=== PATIENT | female | born 1960 | race African-American/Black ===

== ENCOUNTER 2018-05-31 05:31 | Day surgery (SDC) | payer OTHER ==
[2018-05-30 16:56] VITALS: BMI 30.3
[2018-05-31] MEDS ORDERED: SEVOFLURANE 250 ML BTL ONE (08:02)
[2018-05-31] MEDS ORDERED: MIDAZOLAM HCL 2 MG/2 ML SINGLE DOSE VIAL ONE (09:02)
--- NOTE | 2018-05-31 09:28 | HP ---
DATE OF ADMISSION: 05/31/2018 She is a 57-year-old female with history of overactive bladder, also complains of stress urinary incontinence. Patient wakes up every 1 hour to pass urine. She denies dysuria or hematuria. She does have history of high blood pressure, COPD, and dyslipidemia. Patient has undergone a hysterectomy as well as transvaginal taping. She is a G3, P3, 1 . Presently, she is on Symbicort, gabapentin, Norvasc, Zocor, Prozac, and Ambien. PHYSICAL EXAMINATION: General: A well-developed, middle-aged female in no apparent distress. Abdomen: Soft. Back: No CVA tenderness was noted. Pelvic: Vaginal orifice revealed a grade 1 cystocele. There was atrophic vaginitis. Extremities: Showed full range of motion with no cyanosis, clubbing, or edema. IMPRESSION AT PRESENT: Overactive bladder, minimal help with anticholinergics. PLAN: Botox bladder injection. Genie [id number]
[2018-05-31] MEDS ORDERED: ACETAMINOPHEN 325 MG TABLET (FP) PO PRN (09:33)
[2018-05-31] MEDS ORDERED: DEXAMETHASONE SOD PHOSPHATE 4 MG/1 ML VIAL ONE (09:41)
--- NOTE | 2018-05-31 09:43 | OP ---
Operative Note - Note: Operative Date: 05/31/18 Pre-Operative Diagnosis: oab Operation: cysto iou, botox injection into bladder Findings: grade 1 trabeculation and mild hyperemia Post-Operative Diagnosis: Same as Pre-op Surgeon: Jj Bhandari Anesthesia: General Specimens Removed: urine Estimated Blood Loss (mls): 0 Drains, Volume Out (mls): 0 Blood Volume Replaced (mls): 0 Fluid Volume Replaced (mls): 0 Operative Report Dictated: Yes
[2018-05-31] MEDS ORDERED: ceFAZolin SODIUM 1 GM VIAL IVPB ONE (09:46)
[2018-05-31] MEDS ORDERED: PROPOFOL 20 ML ONE (09:46)
[2018-05-31] MEDS ORDERED: LIDOCAINE HCL/PF 2% SDV 5ML VIAL ONE (09:46)
[2018-05-31] MEDS ORDERED: ceFAZolin SODIUM 1 GM VIAL ONE (09:46)
[2018-05-31] MEDS ORDERED: BOTULINUM TOXIN A 100 UNITS VIAL NR ONE (10:00)
[2018-05-31] MEDS ORDERED: oxyCODONE HCL 5 MG TABLET PO PRN (10:19)
[2018-05-31] MEDS ORDERED: ONDANSETRON 4 MG/2 ML VIAL IVPUSH PRN (10:19)
[2018-05-31] MEDS ORDERED: LACTATED RINGERS SOLUTION 1,000 ML IV SCH (10:30)
[2018-05-31 13:40] VITALS: BP 141/79; PULSE 66; TEMP 97.8
--- NOTE | 2018-06-30 10:54 | OP ---
DATE OF OPERATION: 05/31/2018 PREOPERATIVE DIAGNOSIS: Overactive bladder. OPERATIVE PROCEDURE: Cystourethroscopy and bladder instillation of Botox solution. ANESTHESIA: General. Under the above-stated anesthesia, patient was prepped and draped in the usual sterile manner. She was placed in the dorsal lithotomy position. A 30-degree continuous-flow scope introduced under direct vision revealed a normal bladder mucosa. No lesions were noted. No calculi were seen. Ureteral orifices were within normal limits. Next, 200 units of Botox were mixed with 20 mL of normal saline. Therefore, 1 mL of the solution was injected 1 cm above the ureteral orifices, commencing from the right side of the bladder and ending at the left side of the bladder. Four rows of 5 injections were performed. No active bleeding was noted. The bladder was emptied. The scope was removed. The patient tolerated the procedure well. She returned to the recovery room in good condition. Genie [id number]
== END 2018-05-31 13:30 | disposition home or self-care (01) ==
LOC: JASU-SURG 05:31
PROVIDERS: ATTEND Urology
PROC: 3E0K8GC Introduction of Other Therapeutic Substance into Genitourinary Tract, Via Natural or Artificial Opening Endoscopic (ICD-10-PCS; principal; 2018-05-31 09:00)
DX: N32.81 Overactive bladder (principal)
CPT/HCPCS: 94760

== ENCOUNTER 2018-08-12 09:41 | Day surgery (SDC) | payer OTHER ==
[2018-08-11 10:47] VITALS: BMI 30.7
[~2018-08-12 09:41] MED LIST: LIDOCAINE 1% P/F 10 MG/ML VIAL INF ONE
[2018-08-12] MEDS ORDERED: LIDOCAINE HCL 1%, 10 MG/ML (20ML VIAL) ONE (13:20)
--- NOTE | 2018-08-12 13:34 | OP ---
Operative Note - Note: Operative Date: 08/05/18 Pre-Operative Diagnosis: oab Operation: bladder interstim and lead implantation Post-Operative Diagnosis: Same as Pre-op Surgeon: Jj Bhandari Anesthesia: Local, Fractional Specimens Removed: none Estimated Blood Loss (mls): 20 Drains & Tubes with Location: 0cc Drains, Volume Out (mls): 0 Blood Volume Replaced (mls): 0 Fluid Volume Replaced (mls): 0 Operative Report Dictated: Yes
[2018-08-12] MEDS ORDERED: MIDAZOLAM HCL 2 MG/2 ML SINGLE DOSE VIAL ONE ×2 (13:42)
[2018-08-12] MEDS ORDERED: ceFAZolin SODIUM 1 GM VIAL ONE (13:50)
[2018-08-12] MEDS ORDERED: ceFAZolin SODIUM 1 GM VIAL IVPB ONE (13:50)
[2018-08-12] MEDS ORDERED: ONDANSETRON 4 MG/2 ML VIAL ONE (13:53)
[2018-08-12] MEDS ORDERED: DEXAMETHASONE SOD PHOSPHATE 4 MG/1 ML VIAL ONE (13:53)
[2018-08-12] MEDS ORDERED: LIDOCAINE 1% P/F 10 MG/ML VIAL INF ONE ×2 (13:59)
[2018-08-12] MEDS ORDERED: PROPOFOL 20 ML ONE (14:06)
[2018-08-12] MEDS ORDERED: oxyCODONE HCL 5 MG TABLET PO PRN (15:08)
[2018-08-12] MEDS ORDERED: ONDANSETRON 4 MG/2 ML VIAL IVPUSH PRN (15:08)
[2018-08-12] MEDS ORDERED: LACTATED RINGERS SOLUTION 1,000 ML IV SCH (15:15)
[2018-08-12 17:03] VITALS: BP 139/86; PULSE 64; TEMP 98
--- NOTE | 2018-08-13 07:18 | OP ---
DATE OF OPERATION: 08/12/2018 PREOPERATIVE DIAGNOSIS: Overactive bladder. OPERATIVE PROCEDURE: Implantation of neuromodulation lead and battery. ANESTHESIA: Local as well as fractional. DESCRIPTION OF PROCEDURE: Under above stated anesthesia, the patient was prepped and draped in the usual sterile manner. She is placed in the prone position. After cannulating sacral root to and finding the bellow maneuver, the sacral root was entered via the lead. The lead was then subcutaneously tunneled to the right supraglutteal area. A pocket was made by performing a 6-cm vertical incision. This was carried down through skin and subcutaneous tissue using both blunt and sharp dissection. The lead was connected to the neuromodulation battery and placed in the pocket. The pocket was irrigated with antibiotic, and the pocket was closed with the 1st layer of 3-0 Vicryl suture LigaSure and the skin with halle. Pressure dressing was applied. Patient tolerated the procedure well. She returned to the recovery room in good condition. Genie [id number]
== END 2018-08-12 17:55 | disposition home or self-care (01) ==
LOC: JASU-SURG 09:41
PROVIDERS: ATTEND Urology
PROC: 01HY0MZ Insertion of Neurostimulator Lead into Peripheral Nerve, Open Approach (ICD-10-PCS; 2018-08-12)
PROC: 4B01XVZ Measurement of Peripheral Nervous Stimulator, External Approach (ICD-10-PCS; 2018-08-12)
PROC: 0JH70DZ Insertion of Multiple Array Stimulator Generator into Back Subcutaneous Tissue and Fascia, Open Approach (ICD-10-PCS; principal; 2018-08-12 12:00)
DX: N32.81 Overactive bladder (principal); R39.15 Urgency of urination; R35.0 Frequency of micturition
CPT/HCPCS: 64581; 64590; 95972; C1778; L8679; 76000-TC-FY; 94760

== ENCOUNTER 2022-02-27 14:06 | Inpatient (IN) | payer BC, OTHER ==
[2022-02-27] MEDS ORDERED: SODIUM CHLORIDE 2,395 ML IV ONE (15:22)
[2022-02-27] MEDS ORDERED: ACETAMINOPHEN 1000 MG/100 ML BAG IVPB ONE (15:23)
[2022-02-27] MEDS ORDERED: CEFEPIME HCL/D5W 2 GM/50 ML BAG IVPB ONE (15:25)
[2022-02-27] MEDS ORDERED: VANCOMYCIN 1 GM in D5W (PRE-DOCKED) 1,000 MG/250 ML IVPB ONE (15:25)
[2022-02-27] MEDS ORDERED: ACETAMINOPHEN INJECTION 100 ML IVPB ONE (15:50)
[2022-02-27] MEDS ORDERED: CEFEPIME 2 GM/100 ML BAG IVPB ONE (16:10)
[2022-02-27 16:30] LABS: HEMOGLOBIN 12.5 GM/dL (10.7-15.3); MCH 25.3 pg (25.7-33.7); MEAN CELL VOLUME 79.1 fl (80-96); MEAN PLT VOLUME 9.7 fl (7.5-11.1); PLATELET COUNT 265 10^3/uL (134-434); RBC 4.93 M/mm3 (3.60-5.2); RDW 17.8 % (11.6-15.6); WHITE BLOOD COUNT 28.5 K/mm3 (4.0-10.0)
[2022-02-27 16:33] LABS: VENOUS BASE EXCESS -4.5 mmol/L (-2-2); VENOUS O2 SATURATION 65.8 % (70-80); VENOUS PCO2 38.6 mmHg (38-52); VENOUS PH 7.347 (7.310-7.410)
[2022-02-27 16:41] LABS: INR 1.42 (0.83-1.09); PROTHROMBIN TIME (PATIENT) 16.4 SEC (9.7-13.0)
[2022-02-27 16:43] LABS: ACTIVATED PTT 36.1 SECONDS (25.2-36.5)
[2022-02-27] MEDS ORDERED: VANCOMYCIN/WATER FOR INJ (PEG) 1,000 MG/200 ML BAG IVPB ONE (16:43)
[2022-02-27 17:00] LABS: LACTIC ACID 3.4 mmol/L (0.4-2.0)
[2022-02-27 17:04] LABS: CHLORIDE 105 mmol/L (98-107); SODIUM 136 mmol/L (136-145)
[2022-02-27 17:06] LABS: CALCIUM 8.6 mg/dL (8.5-10.1)
[2022-02-27 17:07] LABS: ALBUMIN 2.8 g/dl (3.4-5.0); ANION GAP 11 MMOL/L (8-16); BLOOD UREA NITROGEN 27.2 mg/dL (7-18); CO2 20 mmol/L (21-32); GLUCOSE,RANDOM 140 mg/dL (74-106)
[2022-02-27 17:09] LABS: CREATININE 2.3 mg/dL (0.55-1.3)
[2022-02-27 17:10] LABS: SGOT/AST 16 U/L (15-37); SGPT/ALT 19 U/L (13-61)
[2022-02-27 17:11] LABS: BILIRUBIN,TOTAL 0.3 mg/dL (0.2-1); TOT PROT 6.8 g/dl (6.4-8.2)
[2022-02-27 17:13] LABS: ALK PHOS 90 U/L (45-117)
[2022-02-27 17:14] LABS: N-TERMINAL BNP 668.2 pg/ml (5-125)
[2022-02-27 17:17] LABS: ANISOCYTOSIS 2+; OVALOCYTE 1+; PLATELET ESTIMATE ADEQUATE; TEAR DROP CELLS 1+
[2022-02-27 19:25] LABS: LACTIC ACID 2.3 mmol/L (0.4-2.0)
[2022-02-27] MEDS ORDERED: SODIUM CHLORIDE 0.9% 500 ML INFUS.BAG IV ONE (19:29)
[2022-02-27] MEDS ORDERED: DEXTROSE 5%-0.45% SALINE 1,000 ML IV SCH (22:00)
[2022-02-27 22:33] LABS: URINE APPEARANCE CLOUDY; URINE BILIRUBIN NEGATIVE (NEGATIVE); URINE COLOR DK YELLOW; URINE GLUCOSE (UA) NEGATIVE (NEGATIVE); URINE KETONE TRACE (NEGATIVE)
[2022-02-27 22:34] LABS: PH,URINE 5.5 (5.0-8.0); URINE LEUK ESTERASE 3+ (NEGATIVE); URINE NITRITE NEGATIVE (NEGATIVE); URINE PROTEIN 30 (NEGATIVE)
[2022-02-28] MEDS: HEPARIN NA (PORCINE) 5,000 UNITS/ML 1ML VIAL SQ SCH ×2 (02:39→10:13)
[2022-02-28] MEDS ORDERED: HEPARIN NA (PORCINE) 5,000 UNITS/ML 1ML VIAL ONE ×2 (02:42→09:55)
[2022-02-28] MEDS: ACETAMINOPHEN 1000 MG/100 ML BAG IVPB PRN ×3 (03:08→15:10)
[2022-02-28 06:26] LABS: HEMOGLOBIN 11.7 GM/dL (10.7-15.3); MCH 24.7 pg (25.7-33.7); MCHC 30.9 g/dl (32.0-36.0); MEAN CELL VOLUME 79.9 fl (80-96); MEAN PLT VOLUME 10.6 fl (7.5-11.1); PLATELET COUNT 252 10^3/uL (134-434); RBC 4.75 M/mm3 (3.60-5.2); RDW 17.8 % (11.6-15.6)
[2022-02-28 06:42] LABS: WHITE BLOOD COUNT 31.7 K/mm3 (4.0-10.0)
[2022-02-28 06:49] LABS: CALCIUM 8.1 mg/dL (8.5-10.1)
[2022-02-28 06:50] LABS: ALBUMIN 2.2 g/dl (3.4-5.0); BLOOD UREA NITROGEN 31.4 mg/dL (7-18)
[2022-02-28 06:54] LABS: BILIRUBIN,TOTAL 0.3 mg/dL (0.2-1); TOT PROT 5.6 g/dl (6.4-8.2)
[2022-02-28 07:09] LABS: LACTIC ACID 2.7 mmol/L (0.4-2.0)
[2022-02-28] MEDS ORDERED: ACETAMINOPHEN INJECTION 100 ML IVPB ONE ×2 (08:47→15:34)
[2022-02-28 09:49] LABS: ANISOCYTOSIS 2+; MACROCYTOSIS 0; OVALOCYTE 2+; TEAR DROP CELLS 1+
[2022-02-28] MEDS ORDERED: CEFEPIME 1 GM/100 ML BAG IVPB ONE (09:56)
[2022-02-28] MEDS ORDERED: CEFEPIME 1 GM in DEXTROSE 5%-WATER 100 ML IVPB ONE (10:00)
[2022-02-28] MEDS ORDERED: methylPREDNISolone NA SUCC 1000 MG/8 ML VIAL IVPB ONE (11:19)
[2022-02-28] MEDS ORDERED: LACTATED RINGERS SOLUTION 1,000 ML/1,000 ML INFUS.BAG IV SCH (11:30)
[2022-02-28] MEDS ORDERED: methylPREDNISolone NA SUCC 1000 MG/8 ML VIAL ONE (11:43)
[2022-02-28] MEDS ORDERED: traMADol HCL 50 MG TABLET ONE (17:56)
[2022-02-28] MEDS: traMADol HCL 50 MG TABLET PO PRN (18:00)
[2022-03-01] MEDS: HEPARIN NA (PORCINE) 5,000 UNITS/ML 1ML VIAL SQ SCH ×3 (03:18→21:17)
[2022-03-01] MEDS: CEFEPIME 1 GM in DEXTROSE 5%-WATER 100 ML IVPB SCH ×3 (03:18→21:17)
[2022-03-01] MEDS ORDERED: CEFEPIME 1 GM/100 ML BAG IVPB ONE ×2 (03:18→08:46)
[2022-03-01] MEDS: traMADol HCL 50 MG TABLET PO PRN ×2 (03:31→21:17)
[2022-03-01] MEDS ORDERED: traMADol HCL 50 MG TABLET ONE (03:37)
[2022-03-01 08:37] LABS: HEMATOCRIT 32.8 % (32.4-45.2); HEMOGLOBIN 10.3 GM/dL (10.7-15.3); MCH 24.9 pg (25.7-33.7); MCHC 31.5 g/dl (32.0-36.0); MEAN CELL VOLUME 78.9 fl (80-96); MEAN PLT VOLUME 9.7 fl (7.5-11.1); PLATELET COUNT 251 10^3/uL (134-434); RBC 4.15 M/mm3 (3.60-5.2); RDW 17.7 % (11.6-15.6)
[2022-03-01] MEDS ORDERED: HEPARIN NA (PORCINE) 5,000 UNITS/ML 1ML VIAL ONE (08:46)
[2022-03-01 08:55] LABS: WHITE BLOOD COUNT 35.5 K/mm3 (4.0-10.0)
[2022-03-01 09:02] LABS: CALCIUM 8.2 mg/dL (8.5-10.1)
[2022-03-01 09:03] LABS: ALBUMIN 2.1 g/dl (3.4-5.0); BLOOD UREA NITROGEN 29.4 mg/dL (7-18); MAGNESIUM 1.8 mg/dL (1.8-2.4)
[2022-03-01 09:06] LABS: CREATININE 0.9 mg/dL (0.55-1.3); PHOSPHOROUS 2.5 mg/dL (2.5-4.9)
[2022-03-01 09:08] LABS: BILIRUBIN,TOTAL 0.3 mg/dL (0.2-1); TOT PROT 5.3 g/dl (6.4-8.2)
[2022-03-01] MEDS ORDERED: methylPREDNISolone NA SUCC 1000 MG/8 ML VIAL IVPB ONE (10:30)
[2022-03-01] MEDS: LACTATED RINGERS SOLUTION 1,000 ML/1,000 ML INFUS.BAG IV SCH (10:32)
[2022-03-01] MEDS ORDERED: POLYETHYLENE GLYCOL (HEALTHYLAX) 3350 17 GM PACKET ONE (10:38)
[2022-03-01] MEDS: POLYETHYLENE GLYCOL (HEALTHYLAX) 3350 17 GM PACKET PO SCH (10:43)
[2022-03-01] MEDS ORDERED: SODIUM CHLORIDE IVPB ONE (11:00)
[2022-03-01] MEDS ORDERED: METHYLPREDNISOLONE NA SUCC IVPB ONE (11:00)
[2022-03-01] MEDS ORDERED: VANCOMYCIN 1 GM/200 ML PREMIX BAG IVPB ONE (11:43)
[2022-03-01] MEDS ORDERED: VANCOMYCIN/WATER FOR INJ (PEG) 1,000 MG/200 ML BAG IVPB ONE (12:01)
[2022-03-01 19:32] VITALS: BMI 28.7
[2022-03-02 06:27] LABS: HEMATOCRIT 31.5 % (32.4-45.2); HEMOGLOBIN 9.9 GM/dL (10.7-15.3); MCH 24.6 pg (25.7-33.7); MCHC 31.3 g/dl (32.0-36.0); MEAN CELL VOLUME 78.4 fl (80-96); MEAN PLT VOLUME 10.1 fl (7.5-11.1); PLATELET COUNT 247 10^3/uL (134-434); RBC 4.02 M/mm3 (3.60-5.2); RDW 17.6 % (11.6-15.6)
[2022-03-02 06:31] LABS: WHITE BLOOD COUNT 37.2 K/mm3 (4.0-10.0)
[2022-03-02] MEDS: traMADol HCL 50 MG TABLET PO PRN (06:47)
[2022-03-02 06:52] LABS: CALCIUM 8.2 mg/dL (8.5-10.1)
[2022-03-02 06:53] LABS: BLOOD UREA NITROGEN 24.5 mg/dL (7-18); MAGNESIUM 1.8 mg/dL (1.8-2.4)
[2022-03-02 06:56] LABS: CREATININE 0.7 mg/dL (0.55-1.3); PHOSPHOROUS 2.9 mg/dL (2.5-4.9)
[2022-03-02 06:57] LABS: BILIRUBIN,TOTAL 0.5 mg/dL (0.2-1); TOT PROT 5.6 g/dl (6.4-8.2)
[2022-03-02] MEDS ORDERED: ARIPiprazole 20 MG TABLET PO SCH ×2 (10:00)
[2022-03-02] MEDS: CARVEDILOL 12.5 MG TABLET (FP) PO SCH ×2 (10:11→21:44)
[2022-03-02] MEDS: CEFEPIME 1 GM in DEXTROSE 5%-WATER 100 ML IVPB SCH ×2 (10:11→21:44)
[2022-03-02] MEDS: HEPARIN NA (PORCINE) 5,000 UNITS/ML 1ML VIAL SQ SCH ×2 (10:13→21:44)
[2022-03-02] MEDS: methylPREDNISolone NA SUCC 40 MG/1 ML VIAL IVPUSH SCH ×3 (10:13→21:44)
[2022-03-02] MEDS: POLYETHYLENE GLYCOL (HEALTHYLAX) 3350 17 GM PACKET PO SCH (10:16)
[2022-03-02 10:23] LABS: ANISOCYTOSIS 1+; MACROCYTOSIS 0
[2022-03-02] MEDS: BUDESONIDE/FORMETEROL FUMARATE 160/4.5 mcg INHALER IH SCH ×2 (11:53→21:48)
[2022-03-02 14:57] LABS: EPI CELLS 10 /uL (0-25.1); HYALINE CASTS 1 /uL (0-3.1); PH,URINE 6.5 (5.0-8.0); URINE APPEARANCE CLEAR; URINE BACTERIA 15 /uL (0-1359); URINE BILIRUBIN NEGATIVE (NEGATIVE); URINE COLOR YELLOW; URINE GLUCOSE (UA) NEGATIVE (NEGATIVE); URINE KETONE 1+ (NEGATIVE); URINE LEUK ESTERASE TRACE (NEGATIVE); URINE NITRITE NEGATIVE (NEGATIVE); URINE PROTEIN TRACE (NEGATIVE); URINE RBC 3 /uL (0-23.9); URINE WBC 13 /uL (0-25.8)
[2022-03-02] MEDS: LACTATED RINGERS SOLUTION 1,000 ML/1,000 ML INFUS.BAG IV SCH (16:40)
[2022-03-03] MEDS: methylPREDNISolone NA SUCC 40 MG/1 ML VIAL IVPUSH SCH ×4 (03:00→21:15)
[2022-03-03 07:10] LABS: HEMATOCRIT 31.6 % (32.4-45.2); HEMOGLOBIN 10.1 GM/dL (10.7-15.3); MCH 25.8 pg (25.7-33.7); MEAN CELL VOLUME 80.6 fl (80-96); MEAN PLT VOLUME 9.8 fl (7.5-11.1); PLATELET COUNT 191 10^3/uL (134-434); RBC 3.92 M/mm3 (3.60-5.2); RDW 17.5 % (11.6-15.6)
[2022-03-03 07:27] LABS: BLOOD UREA NITROGEN 20.9 mg/dL (7-18); CALCIUM 8.3 mg/dL (8.5-10.1)
[2022-03-03 07:28] LABS: ALBUMIN 2.3 g/dl (3.4-5.0)
[2022-03-03 07:31] LABS: BILIRUBIN,TOTAL 0.6 mg/dL (0.2-1); CREATININE 0.6 mg/dL (0.55-1.3)
[2022-03-03 07:32] LABS: TOT PROT 6.1 g/dl (6.4-8.2)
[2022-03-03 09:37] LABS: ANISOCYTOSIS 0; MACROCYTOSIS 0; OVALOCYTE 1+
[2022-03-03] MEDS: CEFEPIME 1 GM in DEXTROSE 5%-WATER 100 ML IVPB SCH ×2 (09:58→21:15)
[2022-03-03] MEDS: CARVEDILOL 12.5 MG TABLET (FP) PO SCH ×2 (09:58→21:15)
[2022-03-03] MEDS: HEPARIN NA (PORCINE) 5,000 UNITS/ML 1ML VIAL SQ SCH ×2 (09:58→21:15)
[2022-03-03] MEDS: BUDESONIDE/FORMETEROL FUMARATE 160/4.5 mcg INHALER IH SCH ×2 (10:17→21:15)
[2022-03-03] MEDS: LACTATED RINGERS SOLUTION 1,000 ML/1,000 ML INFUS.BAG IV SCH (10:25)
[2022-03-03] MEDS ORDERED: PHYTONADIONE 10 MG/1 ML AMP IVPB ONE (13:45)
[2022-03-03] MEDS: POLYETHYLENE GLYCOL (HEALTHYLAX) 3350 17 GM PACKET PO SCH (15:15)
[2022-03-03] MEDS: amLODIPine BESYLATE 10 MG TABLET (FP) PO SCH (18:32)
[2022-03-04] MEDS: methylPREDNISolone NA SUCC 40 MG/1 ML VIAL IVPUSH SCH ×3 (02:56→21:04)
[2022-03-04 07:35] LABS: BASO % 1.8 % (0-2.0); EOS % 1.6 % (0-4.5); HEMATOCRIT 30.9 % (32.4-45.2); HEMOGLOBIN 9.7 GM/dL (10.7-15.3); MCH 24.9 pg (25.7-33.7); MCHC 31.5 g/dl (32.0-36.0); MEAN CELL VOLUME 79.1 fl (80-96); MEAN PLT VOLUME 10.4 fl (7.5-11.1); MONO % 3.6 % (3.8-10.2); PLATELET COUNT 232 10^3/uL (134-434); RBC 3.91 M/mm3 (3.60-5.2); RDW 17.2 % (11.6-15.6); WHITE BLOOD COUNT 26.1 K/mm3 (4.0-10.0)
[2022-03-04 07:42] LABS: INR 1.17 (0.83-1.09); PROTHROMBIN TIME (PATIENT) 13.5 SEC (9.7-13.0)
[2022-03-04 08:04] LABS: ALBUMIN 2.4 g/dl (3.4-5.0); BLOOD UREA NITROGEN 19.5 mg/dL (7-18); CALCIUM 8.5 mg/dL (8.5-10.1)
[2022-03-04 08:06] LABS: ALBUMIN 2.5 g/dl (3.4-5.0); IRON SERUM 87 ug/dL (50-175)
[2022-03-04 08:07] LABS: CREATININE 0.6 mg/dL (0.55-1.3)
[2022-03-04 08:08] LABS: TOTAL IRON BINDING CAPACITY 242 ug/dL (250-450)
[2022-03-04 08:09] LABS: BILIRUBIN,TOTAL 0.6 mg/dL (0.2-1); TOT PROT 6.4 g/dl (6.4-8.2)
[2022-03-04 08:10] LABS: BILIRUBIN,DIRECT 0.3 mg/dL (0.0-0.2)
[2022-03-04 08:11] LABS: BILIRUBIN,TOTAL 0.7 mg/dL (0.2-1); TOT PROT 6.3 g/dl (6.4-8.2)
[2022-03-04 09:37] LABS: ANISOCYTOSIS 1+; MACROCYTOSIS 0; OVALOCYTE 1+
[2022-03-04] MEDS: amLODIPine BESYLATE 10 MG TABLET (FP) PO SCH (09:54)
[2022-03-04] MEDS: HEPARIN NA (PORCINE) 5,000 UNITS/ML 1ML VIAL SQ SCH ×2 (09:54→21:03)
[2022-03-04] MEDS: CEFEPIME 1 GM in DEXTROSE 5%-WATER 100 ML IVPB SCH ×2 (09:54→21:03)
[2022-03-04] MEDS: POLYETHYLENE GLYCOL (HEALTHYLAX) 3350 17 GM PACKET PO SCH (09:54)
[2022-03-04] MEDS: CARVEDILOL 12.5 MG TABLET (FP) PO SCH ×2 (09:54→21:03)
[2022-03-04] MEDS: PANTOPRAZOLE 40 MG TABLET PO SCH (09:54)
[2022-03-04] MEDS: LACTATED RINGERS SOLUTION 1,000 ML/1,000 ML INFUS.BAG IV SCH (09:54)
[2022-03-04] MEDS: BUDESONIDE/FORMETEROL FUMARATE 160/4.5 mcg INHALER IH SCH ×2 (09:54→21:09)
[2022-03-05 07:11] LABS: HEMATOCRIT 30.3 % (32.4-45.2); HEMOGLOBIN 9.7 GM/dL (10.7-15.3); MCH 25.4 pg (25.7-33.7); MEAN CELL VOLUME 79.2 fl (80-96); MEAN PLT VOLUME 10.5 fl (7.5-11.1); PLATELET COUNT 251 10^3/uL (134-434); RBC 3.82 M/mm3 (3.60-5.2); RDW 17.2 % (11.6-15.6)
[2022-03-05 07:19] LABS: INR 1.21 (0.83-1.09)
[2022-03-05 07:30] LABS: CALCIUM 8.4 mg/dL (8.5-10.1)
[2022-03-05 07:31] LABS: ALBUMIN 2.6 g/dl (3.4-5.0); BLOOD UREA NITROGEN 17.2 mg/dL (7-18)
[2022-03-05 07:33] LABS: BILIRUBIN,DIRECT 0.3 mg/dL (0.0-0.2)
[2022-03-05 07:34] LABS: CREATININE 0.5 mg/dL (0.55-1.3)
[2022-03-05 07:35] LABS: BILIRUBIN,TOTAL 0.6 mg/dL (0.2-1)
[2022-03-05 07:36] LABS: TOT PROT 6.6 g/dl (6.4-8.2)
[2022-03-05] MEDS: CARVEDILOL 12.5 MG TABLET (FP) PO SCH ×2 (09:19→21:02)
[2022-03-05] MEDS: HEPARIN NA (PORCINE) 5,000 UNITS/ML 1ML VIAL SQ SCH ×2 (09:19→21:02)
[2022-03-05] MEDS: POLYETHYLENE GLYCOL (HEALTHYLAX) 3350 17 GM PACKET PO SCH (09:19)
[2022-03-05] MEDS: amLODIPine BESYLATE 10 MG TABLET (FP) PO SCH (09:20)
[2022-03-05] MEDS: CEFEPIME 1 GM in DEXTROSE 5%-WATER 100 ML IVPB SCH ×2 (09:20→21:02)
[2022-03-05] MEDS: PANTOPRAZOLE 40 MG TABLET PO SCH (09:20)
[2022-03-05] MEDS: FLUoxetine HCL 20 MG CAPSULE PO SCH (09:21)
[2022-03-05] MEDS: methylPREDNISolone NA SUCC 40 MG/1 ML VIAL IVPUSH SCH ×2 (09:21→21:01)
[2022-03-05] MEDS: BUDESONIDE/FORMETEROL FUMARATE 160/4.5 mcg INHALER IH SCH ×2 (10:00→21:02)
[2022-03-05 10:21] LABS: ANISOCYTOSIS 0; MACROCYTOSIS 0; OVALOCYTE 1+
[2022-03-05] MEDS ORDERED: LISINOPRIL 20 MG TABLET PO ONE (11:00)
[2022-03-06 07:03] LABS: HEMATOCRIT 29.5 % (32.4-45.2); HEMOGLOBIN 9.6 GM/dL (10.7-15.3); MCH 25.6 pg (25.7-33.7); MCHC 32.4 g/dl (32.0-36.0); MEAN CELL VOLUME 78.9 fl (80-96); MEAN PLT VOLUME 10.6 fl (7.5-11.1); PLATELET COUNT 255 10^3/uL (134-434); RBC 3.74 M/mm3 (3.60-5.2); RDW 17.1 % (11.6-15.6); WHITE BLOOD COUNT 17.4 K/mm3 (4.0-10.0)
[2022-03-06 07:20] LABS: INR 1.22 (0.83-1.09); PROTHROMBIN TIME (PATIENT) 14.1 SEC (9.7-13.0)
[2022-03-06 07:21] LABS: CALCIUM 8.4 mg/dL (8.5-10.1)
[2022-03-06 07:22] LABS: ALBUMIN 2.6 g/dl (3.4-5.0); BLOOD UREA NITROGEN 18.8 mg/dL (7-18)
[2022-03-06 07:25] LABS: CREATININE 0.5 mg/dL (0.55-1.3)
[2022-03-06 07:26] LABS: ALBUMIN 2.6 g/dl (3.4-5.0); BILIRUBIN,TOTAL 0.6 mg/dL (0.2-1); TOT PROT 6.6 g/dl (6.4-8.2)
[2022-03-06 07:29] LABS: BILIRUBIN,DIRECT 0.2 mg/dL (0.0-0.2)
[2022-03-06 07:31] LABS: BILIRUBIN,TOTAL 0.8 mg/dL (0.2-1); TOT PROT 6.6 g/dl (6.4-8.2)
[2022-03-06] MEDS: CEFEPIME 1 GM in DEXTROSE 5%-WATER 100 ML IVPB SCH (09:20)
[2022-03-06] MEDS: CARVEDILOL 12.5 MG TABLET (FP) PO SCH ×2 (09:21→21:12)
[2022-03-06] MEDS: LISINOPRIL 20 MG TABLET PO SCH (09:21)
[2022-03-06] MEDS: amLODIPine BESYLATE 10 MG TABLET (FP) PO SCH (09:21)
[2022-03-06] MEDS: FLUoxetine HCL 20 MG CAPSULE PO SCH (09:21)
[2022-03-06] MEDS: POLYETHYLENE GLYCOL (HEALTHYLAX) 3350 17 GM PACKET PO SCH (09:21)
[2022-03-06] MEDS: HEPARIN NA (PORCINE) 5,000 UNITS/ML 1ML VIAL SQ SCH (09:21)
[2022-03-06] MEDS: PANTOPRAZOLE 40 MG TABLET PO SCH (09:21)
[2022-03-06] MEDS: methylPREDNISolone NA SUCC 40 MG/1 ML VIAL IVPUSH SCH ×2 (09:21→21:12)
[2022-03-06] MEDS: BUDESONIDE/FORMETEROL FUMARATE 160/4.5 mcg INHALER IH SCH ×2 (09:22→21:12)
[2022-03-06 09:34] LABS: ANISOCYTOSIS 2+; MACROCYTOSIS 0; OVALOCYTE 2+
[2022-03-06] MEDS: traMADol HCL 50 MG TABLET PO PRN (20:06)
[2022-03-07 07:50] LABS: HEMATOCRIT 29.8 % (32.4-45.2); HEMOGLOBIN 9.7 GM/dL (10.7-15.3); MCH 25.8 pg (25.7-33.7); MCHC 32.4 g/dl (32.0-36.0); MEAN CELL VOLUME 79.5 fl (80-96); MEAN PLT VOLUME 9.9 fl (7.5-11.1); PLATELET COUNT 231 10^3/uL (134-434); RBC 3.75 M/mm3 (3.60-5.2); RDW 17.3 % (11.6-15.6); WHITE BLOOD COUNT 14.5 K/mm3 (4.0-10.0)
[2022-03-07 07:54] LABS: ALBUMIN 2.7 g/dl (3.4-5.0); BLOOD UREA NITROGEN 20.1 mg/dL (7-18); CALCIUM 8.4 mg/dL (8.5-10.1)
[2022-03-07 07:57] LABS: CREATININE 0.6 mg/dL (0.55-1.3)
[2022-03-07 08:00] LABS: BILIRUBIN,TOTAL 0.7 mg/dL (0.2-1); TOT PROT 6.7 g/dl (6.4-8.2)
[2022-03-07] MEDS: PANTOPRAZOLE 40 MG TABLET PO SCH (09:22)
[2022-03-07] MEDS: POLYETHYLENE GLYCOL (HEALTHYLAX) 3350 17 GM PACKET PO SCH (09:23)
[2022-03-07] MEDS: CARVEDILOL 12.5 MG TABLET (FP) PO SCH ×2 (09:23→21:01)
[2022-03-07] MEDS: LISINOPRIL 20 MG TABLET PO SCH (09:23)
[2022-03-07] MEDS: FLUoxetine HCL 20 MG CAPSULE PO SCH (09:23)
[2022-03-07] MEDS: amLODIPine BESYLATE 10 MG TABLET (FP) PO SCH (09:23)
[2022-03-07] MEDS: methylPREDNISolone NA SUCC 40 MG/1 ML VIAL IVPUSH SCH ×2 (09:24→21:01)
[2022-03-07] MEDS: BUDESONIDE/FORMETEROL FUMARATE 160/4.5 mcg INHALER IH SCH ×2 (09:29→21:01)
[2022-03-07 12:02] LABS: ANISOCYTOSIS 1+; MACROCYTOSIS 0
[2022-03-07] MEDS ORDERED: diphenhydrAMINE HCL 25 MG CAPSULE (FP) PO ONE (19:21)
[2022-03-07] MEDS: traMADol HCL 50 MG TABLET PO PRN (21:00)
[2022-03-08 06:59] LABS: HEMATOCRIT 29.6 % (32.4-45.2); HEMOGLOBIN 9.7 GM/dL (10.7-15.3); MCH 26.2 pg (25.7-33.7); MCHC 32.9 g/dl (32.0-36.0); MEAN CELL VOLUME 79.6 fl (80-96); MEAN PLT VOLUME 9.6 fl (7.5-11.1); PLATELET COUNT 246 10^3/uL (134-434); RBC 3.72 M/mm3 (3.60-5.2); RDW 17.3 % (11.6-15.6); WHITE BLOOD COUNT 13.4 K/mm3 (4.0-10.0)
[2022-03-08 07:20] LABS: ALBUMIN 2.8 g/dl (3.4-5.0); BLOOD UREA NITROGEN 18.1 mg/dL (7-18); CALCIUM 8.6 mg/dL (8.5-10.1)
[2022-03-08 07:23] LABS: CREATININE 0.6 mg/dL (0.55-1.3)
[2022-03-08 07:25] LABS: BILIRUBIN,TOTAL 0.5 mg/dL (0.2-1); TOT PROT 6.5 g/dl (6.4-8.2)
[2022-03-08] MEDS ORDERED: diphenhydrAMINE HCL 25 MG CAPSULE (FP) PO ONE (09:22)
[2022-03-08] MEDS ORDERED: HYDROCORTISONE 0.5% TOPICAL OINTMENT TUBE TP PRN (09:33)
[2022-03-08] MEDS: methylPREDNISolone NA SUCC 40 MG/1 ML VIAL IVPUSH SCH ×2 (09:59→21:21)
[2022-03-08] MEDS: LISINOPRIL 20 MG TABLET PO SCH (10:01)
[2022-03-08] MEDS: PANTOPRAZOLE 40 MG TABLET PO SCH (10:02)
[2022-03-08] MEDS: amLODIPine BESYLATE 10 MG TABLET (FP) PO SCH (10:03)
[2022-03-08] MEDS: FLUoxetine HCL 20 MG CAPSULE PO SCH (10:03)
[2022-03-08] MEDS: CARVEDILOL 12.5 MG TABLET (FP) PO SCH ×2 (10:04→21:21)
[2022-03-08] MEDS: POLYETHYLENE GLYCOL (HEALTHYLAX) 3350 17 GM PACKET PO SCH (10:04)
[2022-03-08] MEDS: BUDESONIDE/FORMETEROL FUMARATE 160/4.5 mcg INHALER IH SCH ×2 (10:04→21:21)
[2022-03-08 10:16] LABS: ANISOCYTOSIS 0; HELMET CELLS 0; HOWELL-JOLLY BODIES 0; MACROCYTOSIS 0; OVALOCYTE 0; ROULEAU 0; SICKELED CELLS 0; TARGET CELLS 0; TEAR DROP CELLS 0; TOXIC GRANULATION 0
[2022-03-08] MEDS: MINERAL OIL/PET HY-PHL TOPICAL OINTMENT 454 GM JAR TP SCH ×2 (13:00→21:21)
[2022-03-08] MEDS: traMADol HCL 50 MG TABLET PO PRN ×2 (14:16→22:35)
[2022-03-08] MEDS: diphenhydrAMINE HCL 25 MG CAPSULE (FP) PO PRN (18:07)
[2022-03-08] MEDS: HYDROCORTISONE 0.5% TOPICAL CREAM 30 GM TUBE TP PRN (22:40)
[2022-03-09] MEDS: diphenhydrAMINE HCL 25 MG CAPSULE (FP) PO PRN ×2 (04:55→20:04)
[2022-03-09] MEDS: PANTOPRAZOLE 40 MG TABLET PO SCH (09:58)
[2022-03-09] MEDS: CARVEDILOL 12.5 MG TABLET (FP) PO SCH ×2 (09:58→21:08)
[2022-03-09] MEDS: LISINOPRIL 20 MG TABLET PO SCH (09:59)
[2022-03-09] MEDS: amLODIPine BESYLATE 10 MG TABLET (FP) PO SCH (10:00)
[2022-03-09] MEDS: predniSONE 10 MG TABLET (UD) PO SCH ×2 (10:00→21:08)
[2022-03-09] MEDS: FLUoxetine HCL 20 MG CAPSULE PO SCH (10:00)
[2022-03-09] MEDS: POLYETHYLENE GLYCOL (HEALTHYLAX) 3350 17 GM PACKET PO SCH (10:00)
[2022-03-09] MEDS: MINERAL OIL/PET HY-PHL TOPICAL OINTMENT 454 GM JAR TP SCH ×2 (10:00→21:08)
[2022-03-09] MEDS: BUDESONIDE/FORMETEROL FUMARATE 160/4.5 mcg INHALER IH SCH ×2 (10:00→21:09)
[2022-03-09] MEDS: traMADol HCL 50 MG TABLET PO PRN (16:59)
[2022-03-09] MEDS: HYDROCORTISONE 0.5% TOPICAL CREAM 30 GM TUBE TP PRN ×2 (17:00→21:09)
[2022-03-10] MEDS: traMADol HCL 50 MG TABLET PO PRN (04:29)
[2022-03-10] MEDS: diphenhydrAMINE HCL 25 MG CAPSULE (FP) PO PRN (04:29)
[2022-03-10 10:13] VITALS: BP 145/76; PULSE 60; RESP 16; TEMP 98.5
[2022-03-10] MEDS: amLODIPine BESYLATE 10 MG TABLET (FP) PO SCH (11:01)
[2022-03-10] MEDS: CARVEDILOL 12.5 MG TABLET (FP) PO SCH (11:01)
[2022-03-10] MEDS: PANTOPRAZOLE 40 MG TABLET PO SCH (11:01)
[2022-03-10] MEDS: MINERAL OIL/PET HY-PHL TOPICAL OINTMENT 454 GM JAR TP SCH (11:01)
[2022-03-10] MEDS: POLYETHYLENE GLYCOL (HEALTHYLAX) 3350 17 GM PACKET PO SCH (11:01)
[2022-03-10] MEDS: FLUoxetine HCL 20 MG CAPSULE PO SCH (11:02)
[2022-03-10] MEDS: LISINOPRIL 20 MG TABLET PO SCH (11:02)
[2022-03-10] MEDS: predniSONE 10 MG TABLET (UD) PO SCH (11:02)
[2022-03-10] MEDS: BUDESONIDE/FORMETEROL FUMARATE 160/4.5 mcg INHALER IH SCH (11:02)
== END 2022-03-10 11:53 | disposition home or self-care (01) | DRG 871 ==
LOC: JER 14:06 → JERBED 17:06 → J2W 03-01 19:22
PROVIDERS: ADMIT Internal Medicine; ATTEND Family Medicine
DX: A41.89 Other specified sepsis (principal); J18.9 Pneumonia, unspecified organism; N17.9 Acute kidney failure, unspecified; E87.2 Acidosis; E78.5 Hyperlipidemia, unspecified; I10 Essential (primary) hypertension; N28.1 Cyst of kidney, acquired; J45.909 Unspecified asthma, uncomplicated; R21 Rash and other nonspecific skin eruption; R79.89 Other specified abnormal findings of blood chemistry; R74.01 Elevation of levels of liver transaminase levels; M46.46 Discitis, unspecified, lumbar region; D72.829 Elevated white blood cell count, unspecified; D72.12 Drug rash with eosinophilia and systemic symptoms syndrome; T50.995A Adverse effect of other drugs, medicaments and biological substances, initial encounter
CPT/HCPCS: 0241U-QW; 36415; 71045-TC-FY; 71046-TC-FY; 74176-TC; 76705-TC; 76775-TC; 78226-TC; 80053; 80076; 81003; 82550; 82553; 82570; 82728; 82803; 82977; 83516; 83540; 83550; 83605; 83690; 83735; 83880; 84100; 84156; 84300; 84484; 85025; 85610; 85651; 85730; 86038; 86140; 86593; 86694; 86695; 86696; 86708; 86757; 86780; 86803; 86850; 86900; 86901; 87040; 87086; 87340; 87517; 87902; 88300-TC; 93005; 93010; 97116-GP; 97162-GP; 99291; A9537; G0480; J1644

== ENCOUNTER 2022-03-25 15:55 | Inpatient (IN) | payer BC, OTHER ==
[2022-03-25] MEDS ORDERED: ACETAMINOPHEN 1000 MG/100 ML BAG IVPB ONE (16:24)
[2022-03-25] MEDS ORDERED: ACETAMINOPHEN INJECTION 100 ML IVPB ONE (16:57)
[2022-03-25 17:11] LABS: BASO % 0.5 % (0-2.0); EOS % 10.4 % (0-4.5); HEMATOCRIT 33.2 % (32.4-45.2); HEMOGLOBIN 10.6 GM/dL (10.7-15.3); LYMPH % 19.9 % (8-40); MCH 26.6 pg (25.7-33.7); MEAN CELL VOLUME 83.1 fl (80-96); MEAN PLT VOLUME 8.4 fl (7.5-11.1); MONO % 5.1 % (3.8-10.2); NEUT % 64.1 % (42.8-82.8); PLATELET COUNT 212 10^3/uL (134-434); RDW 20.4 % (11.6-15.6); WHITE BLOOD COUNT 15.2 K/mm3 (4.0-10.0)
[2022-03-25 17:14] LABS: VENOUS BASE EXCESS 1.7 mmol/L (-2-2); VENOUS O2 SATURATION 52.8 % (70-80); VENOUS PCO2 46.5 mmHg (38-52); VENOUS PH 7.385 (7.310-7.410)
[2022-03-25 17:20] LABS: INR 0.94 (0.83-1.09); PROTHROMBIN TIME (PATIENT) 10.8 SEC (9.7-13.0)
[2022-03-25 17:23] LABS: ACTIVATED PTT 23.1 SECONDS (25.2-36.5)
[2022-03-25] MEDS ORDERED: VANCOMYCIN 1 GM in D5W (PRE-DOCKED) 1,000 MG/250 ML IVPB ONE (17:27)
[2022-03-25] MEDS ORDERED: PIPERACILLIN/TAZOB 3.375 GM 3.375 GM in DEXTROSE 5%-WATER - 50 ML IVPB ONE (17:27)
[2022-03-25] MEDS ORDERED: VANCOMYCIN/WATER FOR INJ (PEG) 1,000 MG/200 ML BAG IVPB ONE (17:32)
[2022-03-25] MEDS ORDERED: PIPERACILLIN/TAZOB 3.375 GM 3.375 GM/50 ML BAG IVPB ONE (17:32)
[2022-03-25 17:36] LABS: CHLORIDE 97 mmol/L (98-107); SODIUM 135 mmol/L (136-145)
[2022-03-25 17:38] LABS: CALCIUM 8.4 mg/dL (8.5-10.1)
[2022-03-25 17:39] LABS: ALBUMIN 2.8 g/dl (3.4-5.0); ANION GAP 12 MMOL/L (8-16); BLOOD UREA NITROGEN 18.8 mg/dL (7-18); CO2 27 mmol/L (21-32); GLUCOSE,RANDOM 94 mg/dL (74-106)
[2022-03-25 17:42] LABS: CREATININE 0.9 mg/dL (0.55-1.3); SGOT/AST 30 U/L (15-37); SGPT/ALT 33 U/L (13-61)
[2022-03-25 17:43] LABS: ANISOCYTOSIS 2+; MACROCYTOSIS 0; OVALOCYTE 1+
[2022-03-25 17:44] LABS: BILIRUBIN,TOTAL 0.4 mg/dL (0.2-1)
[2022-03-25 17:45] LABS: ALK PHOS 89 U/L (45-117)
[2022-03-25 22:30] LABS: PH,URINE 7.5 (5.0-8.0); URINE APPEARANCE CLEAR; URINE BILIRUBIN NEGATIVE (NEGATIVE); URINE COLOR YELLOW; URINE GLUCOSE (UA) NEGATIVE (NEGATIVE); URINE KETONE NEGATIVE (NEGATIVE); URINE LEUK ESTERASE NEGATIVE (NEGATIVE); URINE NITRITE NEGATIVE (NEGATIVE); URINE PROTEIN NEGATIVE (NEGATIVE); URINE UROBILINOGEN 0.2 mg/dL (0.2-1.0)
[2022-03-26] MEDS ORDERED: HYDROCORTISONE 0.5% TOPICAL CREAM 30 GM TUBE TP PRN (01:01)
[2022-03-26] MEDS ORDERED: ALBUTEROL SO4 0.083% IH SOL 2.5 MG/3 ML VIAL.NEB. NEB PRN (01:01)
[2022-03-26] MEDS ORDERED: ACETAMINOPHEN 1000 MG/100 ML BAG IVPB PRN (03:11)
[2022-03-26] MEDS ORDERED: LIDOCAINE 5% TOPICAL PATCH TP ONE (03:17)
[2022-03-26] MEDS: BUDESONIDE/FORMETEROL FUMARATE 160/4.5 mcg INHALER IH SCH ×3 (03:30→22:27)
[2022-03-26] MEDS: GABAPENTIN 300 MG CAPSULE PO SCH ×3 (03:30→22:27)
[2022-03-26] MEDS: PIPERACILLIN/TAZOB 3.375 GM 3.375 GM in DEXTROSE 5%-WATER - 50 ML IVPB SCH ×4 (03:31→21:26)
[2022-03-26] MEDS ORDERED: MAG HYDROX/AL HYDROX/SIMETH 30 ML UNIT-DOSE CUP PO PRN (03:51)
[2022-03-26] MEDS ORDERED: ARTIFICIAL TEARS (POLYVINYL ALCOHOL) OPTH DROPS OU PRN (06:01)
[2022-03-26 06:27] VITALS: BMI 26.3
[2022-03-26] MEDS: VANCOMYCIN/WATER FOR INJ (PEG) 1,000 MG/200 ML BAG IVPB SCH ×2 (06:45→19:05)
[2022-03-26 08:20] LABS: HEMATOCRIT 31.4 % (32.4-45.2); HEMOGLOBIN 10.4 GM/dL (10.7-15.3); MCH 27.3 pg (25.7-33.7); MEAN CELL VOLUME 82.6 fl (80-96); MEAN PLT VOLUME 8.8 fl (7.5-11.1); PLATELET COUNT 204 10^3/uL (134-434); RDW 20.3 % (11.6-15.6); WHITE BLOOD COUNT 10.9 K/mm3 (4.0-10.0)
[2022-03-26 08:36] LABS: BLOOD UREA NITROGEN 13.8 mg/dL (7-18); CALCIUM 8.5 mg/dL (8.5-10.1); MAGNESIUM 2.4 mg/dL (1.8-2.4)
[2022-03-26 08:39] LABS: CREATININE 0.8 mg/dL (0.55-1.3); PHOSPHOROUS 4.4 mg/dL (2.5-4.9)
[2022-03-26 09:33] LABS: ANISOCYTOSIS 1+; MACROCYTOSIS 1+
[2022-03-26] MEDS ORDERED: LIDOCAINE PATCH REMOVAL MC ONE (10:00)
[2022-03-26] MEDS ORDERED: VANCOMYCIN 1 GM in D5W (PRE-DOCKED) 1,000 MG/250 ML IVPB SCH (10:00)
[2022-03-26] MEDS ORDERED: LIDOCAINE 5% TOPICAL PATCH TP SCH (10:00)
[2022-03-26] MEDS: PANTOPRAZOLE 40 MG TABLET PO SCH (10:14)
[2022-03-26] MEDS: ENOXAPARIN NA (PORCINE) 40 MG/0.4 ML DISP.SYRIN SQ SCH (10:18)
[2022-03-26] MEDS: FLUTICASONE PROP 0.05% 16 GM NASAL SPRAY NS SCH (10:40)
[2022-03-26] MEDS: ACETAMINOPHEN 325 MG TABLET (FP) PO PRN (10:50)
[2022-03-26] MEDS: FLUoxetine HCL 20 MG CAPSULE PO SCH (10:53)
[2022-03-26] MEDS: CARVEDILOL 12.5 MG TABLET (FP) PO SCH ×2 (11:14→22:26)
[2022-03-26] MEDS: MINERAL OIL/PET HY-PHL TOPICAL OINTMENT 454 GM JAR TP SCH ×2 (11:17→22:26)
[2022-03-26] MEDS: LIDOCAINE 5% TOPICAL PATCH TP SCH (12:39)
[2022-03-26] MEDS ORDERED: KETOROLAC TROMETHAMINE 30 MG/1 ML VIAL IVPUSH PRN (16:07)
[2022-03-26] MEDS: KETOROLAC TROMETHAMINE 30 MG/1 ML VIAL IVPB PRN ×2 (16:54→22:16)
[2022-03-26] MEDS: LIDOCAINE PATCH REMOVAL MC SCH (22:27)
[2022-03-27] MEDS: PIPERACILLIN/TAZOB 3.375 GM 3.375 GM in DEXTROSE 5%-WATER - 50 ML IVPB SCH ×5 (01:48→18:08)
[2022-03-27] MEDS ORDERED: PIPERACILLIN/TAZOB 3.375 GM 3.375 GM in DEXTROSE 5%-WATER - 50 ML IVPB SCH (02:00)
[2022-03-27] MEDS: VANCOMYCIN 1 GM in D5W (PRE-DOCKED) 1,000 MG/250 ML IVPB SCH (07:55)
[2022-03-27] MEDS: CARVEDILOL 12.5 MG TABLET (FP) PO SCH ×2 (09:39→21:33)
[2022-03-27] MEDS: FLUTICASONE PROP 0.05% 16 GM NASAL SPRAY NS SCH (09:40)
[2022-03-27] MEDS: ENOXAPARIN NA (PORCINE) 40 MG/0.4 ML DISP.SYRIN SQ SCH (09:40)
[2022-03-27] MEDS: LIDOCAINE 5% TOPICAL PATCH TP SCH (09:40)
[2022-03-27] MEDS: BUDESONIDE/FORMETEROL FUMARATE 160/4.5 mcg INHALER IH SCH ×2 (09:41→21:35)
[2022-03-27] MEDS: PANTOPRAZOLE 40 MG TABLET PO SCH (09:41)
[2022-03-27] MEDS: MINERAL OIL/PET HY-PHL TOPICAL OINTMENT 454 GM JAR TP SCH ×2 (09:41→21:35)
[2022-03-27] MEDS: FLUoxetine HCL 20 MG CAPSULE PO SCH (09:41)
[2022-03-27] MEDS: GABAPENTIN 300 MG CAPSULE PO SCH ×2 (09:41→21:33)
[2022-03-27] MEDS: KETOROLAC TROMETHAMINE 30 MG/1 ML VIAL IVPB PRN (09:54)
[2022-03-27] MEDS ORDERED: KETOROLAC TROMETHAMINE 30 MG/1 ML VIAL IVPUSH PRN (18:13)
[2022-03-27] MEDS: LIDOCAINE PATCH REMOVAL MC SCH (21:34)
[2022-03-28] MEDS: FLUoxetine HCL 20 MG CAPSULE PO SCH (09:54)
[2022-03-28] MEDS: CARVEDILOL 12.5 MG TABLET (FP) PO SCH ×2 (09:54→21:54)
[2022-03-28] MEDS: MINERAL OIL/PET HY-PHL TOPICAL OINTMENT 454 GM JAR TP SCH ×2 (09:54→21:55)
[2022-03-28] MEDS: GABAPENTIN 300 MG CAPSULE PO SCH ×2 (09:54→21:54)
[2022-03-28] MEDS: PANTOPRAZOLE 40 MG TABLET PO SCH (09:54)
[2022-03-28] MEDS: LIDOCAINE 5% TOPICAL PATCH TP SCH (09:55)
[2022-03-28] MEDS: BUDESONIDE/FORMETEROL FUMARATE 160/4.5 mcg INHALER IH SCH ×2 (09:55→21:53)
[2022-03-28] MEDS: FLUTICASONE PROP 0.05% 16 GM NASAL SPRAY NS SCH (10:01)
[2022-03-28] MEDS: oxyCODONE HCL 5 MG TABLET PO PRN ×3 (10:03→22:26)
[2022-03-28] MEDS: LIDOCAINE PATCH REMOVAL MC SCH (21:54)
[2022-03-29] MEDS: oxyCODONE HCL 5 MG TABLET PO PRN ×2 (09:14→21:55)
[2022-03-29] MEDS: PANTOPRAZOLE 40 MG TABLET PO SCH (09:15)
[2022-03-29] MEDS: GABAPENTIN 300 MG CAPSULE PO SCH ×2 (09:15→21:54)
[2022-03-29] MEDS: CARVEDILOL 12.5 MG TABLET (FP) PO SCH ×2 (09:15→21:54)
[2022-03-29] MEDS: FLUoxetine HCL 20 MG CAPSULE PO SCH (09:15)
[2022-03-29] MEDS: BUDESONIDE/FORMETEROL FUMARATE 160/4.5 mcg INHALER IH SCH ×2 (09:16→21:54)
[2022-03-29] MEDS: FLUTICASONE PROP 0.05% 16 GM NASAL SPRAY NS SCH (09:16)
[2022-03-29] MEDS: LIDOCAINE 5% TOPICAL PATCH TP SCH (09:19)
[2022-03-29] MEDS: MINERAL OIL/PET HY-PHL TOPICAL OINTMENT 454 GM JAR TP SCH ×2 (09:20→21:54)
[2022-03-29] MEDS: KETOROLAC TROMETHAMINE 30 MG/1 ML VIAL IVPUSH PRN (14:00)
[2022-03-29] MEDS: DOCUSATE SODIUM 100 MG CAPSULE (FP) PO SCH ×2 (14:05→21:54)
[2022-03-29] MEDS: LIDOCAINE PATCH REMOVAL MC SCH (21:54)
[2022-03-30] MEDS: DOCUSATE SODIUM 100 MG CAPSULE (FP) PO SCH ×3 (06:19→21:30)
[2022-03-30] MEDS: LIDOCAINE 5% TOPICAL PATCH TP SCH (11:42)
[2022-03-30] MEDS: oxyCODONE HCL 5 MG TABLET PO PRN ×2 (11:42→19:25)
[2022-03-30] MEDS: GABAPENTIN 300 MG CAPSULE PO SCH ×2 (11:43→21:30)
[2022-03-30] MEDS: CARVEDILOL 12.5 MG TABLET (FP) PO SCH ×2 (11:44→21:30)
[2022-03-30] MEDS: FLUTICASONE PROP 0.05% 16 GM NASAL SPRAY NS SCH (11:44)
[2022-03-30] MEDS: FLUoxetine HCL 20 MG CAPSULE PO SCH (11:44)
[2022-03-30] MEDS: PANTOPRAZOLE 40 MG TABLET PO SCH (11:44)
[2022-03-30] MEDS: BUDESONIDE/FORMETEROL FUMARATE 160/4.5 mcg INHALER IH SCH ×2 (11:49→21:31)
[2022-03-30] MEDS: MINERAL OIL/PET HY-PHL TOPICAL OINTMENT 454 GM JAR TP SCH ×2 (11:50→21:30)
[2022-03-30] MEDS: PIPERACILLIN/TAZOB 3.375 GM 3.375 GM in DEXTROSE 5%-WATER - 50 ML IVPB SCH ×2 (12:17→18:51)
[2022-03-30] MEDS: VANCOMYCIN/WATER FOR INJ (PEG) 1,000 MG/200 ML BAG IVPB SCH (12:23)
[2022-03-30] MEDS: ACETAMINOPHEN 325 MG TABLET (FP) PO PRN (14:27)
[2022-03-30] MEDS: KETOROLAC TROMETHAMINE 30 MG/1 ML VIAL IVPUSH PRN (21:29)
[2022-03-30] MEDS: LIDOCAINE PATCH REMOVAL MC SCH (21:30)
[2022-03-31] MEDS: VANCOMYCIN/WATER FOR INJ (PEG) 1,000 MG/200 ML BAG IVPB SCH ×2 (00:04→15:04)
[2022-03-31] MEDS: PIPERACILLIN/TAZOB 3.375 GM 3.375 GM in DEXTROSE 5%-WATER - 50 ML IVPB SCH ×3 (02:04→17:59)
[2022-03-31] MEDS: oxyCODONE HCL 5 MG TABLET PO PRN ×3 (02:05→18:34)
[2022-03-31] MEDS: DOCUSATE SODIUM 100 MG CAPSULE (FP) PO SCH ×3 (05:53→21:28)
[2022-03-31] MEDS: KETOROLAC TROMETHAMINE 30 MG/1 ML VIAL IVPUSH PRN ×3 (05:54→23:48)
[2022-03-31 09:49] LABS: HEMOGLOBIN 9.5 GM/dL (10.7-15.3); MCH 26.6 pg (25.7-33.7); MCHC 31.7 g/dl (32.0-36.0); MEAN CELL VOLUME 83.8 fl (80-96); MEAN PLT VOLUME 8.5 fl (7.5-11.1); PLATELET COUNT 308 10^3/uL (134-434); RBC 3.57 M/mm3 (3.60-5.2); RDW 20.5 % (11.6-15.6); WHITE BLOOD COUNT 7.6 K/mm3 (4.0-10.0)
[2022-03-31 10:16] LABS: ALBUMIN 2.7 g/dl (3.4-5.0); BLOOD UREA NITROGEN 8.2 mg/dL (7-18); CALCIUM 8.7 mg/dL (8.5-10.1)
[2022-03-31 10:19] LABS: CREATININE 0.7 mg/dL (0.55-1.3)
[2022-03-31 10:21] LABS: BILIRUBIN,TOTAL 0.3 mg/dL (0.2-1); TOT PROT 5.7 g/dl (6.4-8.2)
[2022-03-31] MEDS: GABAPENTIN 300 MG CAPSULE PO SCH ×2 (10:36→21:28)
[2022-03-31] MEDS: FLUoxetine HCL 20 MG CAPSULE PO SCH (10:37)
[2022-03-31] MEDS: CARVEDILOL 12.5 MG TABLET (FP) PO SCH ×2 (10:38→21:28)
[2022-03-31] MEDS: PANTOPRAZOLE 40 MG TABLET PO SCH (10:38)
[2022-03-31] MEDS: BUDESONIDE/FORMETEROL FUMARATE 160/4.5 mcg INHALER IH SCH ×2 (10:40→21:28)
[2022-03-31] MEDS: MINERAL OIL/PET HY-PHL TOPICAL OINTMENT 454 GM JAR TP SCH ×2 (10:40→21:28)
[2022-03-31] MEDS: FLUTICASONE PROP 0.05% 16 GM NASAL SPRAY NS SCH (10:41)
[2022-03-31] MEDS: LIDOCAINE 5% TOPICAL PATCH TP SCH (10:41)
[2022-03-31] MEDS ORDERED: PIPERACILLIN/TAZOBACTAM 3.375 GM VIAL IVPB ONE (14:55)
[2022-03-31] MEDS: LIDOCAINE PATCH REMOVAL MC SCH (21:28)
[2022-04-01] MEDS: PIPERACILLIN/TAZOB 3.375 GM 3.375 GM in DEXTROSE 5%-WATER - 50 ML IVPB SCH ×3 (01:50→17:59)
[2022-04-01] MEDS: DOCUSATE SODIUM 100 MG CAPSULE (FP) PO SCH ×3 (06:10→21:54)
[2022-04-01] MEDS: oxyCODONE HCL 5 MG TABLET PO PRN ×3 (08:25→21:57)
[2022-04-01] MEDS: FLUoxetine HCL 20 MG CAPSULE PO SCH (09:34)
[2022-04-01] MEDS: CARVEDILOL 12.5 MG TABLET (FP) PO SCH ×2 (09:34→21:54)
[2022-04-01] MEDS: GABAPENTIN 300 MG CAPSULE PO SCH ×2 (09:34→21:54)
[2022-04-01] MEDS: PANTOPRAZOLE 40 MG TABLET PO SCH (09:35)
[2022-04-01] MEDS: MINERAL OIL/PET HY-PHL TOPICAL OINTMENT 454 GM JAR TP SCH ×2 (09:35→22:10)
[2022-04-01] MEDS: FLUTICASONE PROP 0.05% 16 GM NASAL SPRAY NS SCH (09:36)
[2022-04-01] MEDS: BUDESONIDE/FORMETEROL FUMARATE 160/4.5 mcg INHALER IH SCH ×2 (09:36→22:09)
[2022-04-01] MEDS: LIDOCAINE 5% TOPICAL PATCH TP SCH (10:19)
[2022-04-01] MEDS: VANCOMYCIN/WATER FOR INJ (PEG) 1,000 MG/200 ML BAG IVPB SCH ×2 (12:41)
[2022-04-01] MEDS: ACETAMINOPHEN 325 MG TABLET (FP) PO PRN (14:20)
[2022-04-01] MEDS: KETOROLAC TROMETHAMINE 30 MG/1 ML VIAL IVPUSH PRN (18:39)
[2022-04-01] MEDS: LIDOCAINE PATCH REMOVAL MC SCH (22:10)
[2022-04-02] MEDS: VANCOMYCIN/WATER FOR INJ (PEG) 1,000 MG/200 ML BAG IVPB SCH ×2 (00:45→11:48)
[2022-04-02] MEDS: PIPERACILLIN/TAZOB 3.375 GM 3.375 GM in DEXTROSE 5%-WATER - 50 ML IVPB SCH ×2 (02:00→09:44)
[2022-04-02] MEDS: DOCUSATE SODIUM 100 MG CAPSULE (FP) PO SCH ×3 (05:10→21:30)
[2022-04-02] MEDS: oxyCODONE HCL 5 MG TABLET PO PRN ×2 (09:39→19:28)
[2022-04-02] MEDS: GABAPENTIN 300 MG CAPSULE PO SCH ×2 (09:40→21:30)
[2022-04-02] MEDS: PANTOPRAZOLE 40 MG TABLET PO SCH (09:40)
[2022-04-02] MEDS: FLUoxetine HCL 20 MG CAPSULE PO SCH (09:40)
[2022-04-02] MEDS: BUDESONIDE/FORMETEROL FUMARATE 160/4.5 mcg INHALER IH SCH ×2 (09:41→21:44)
[2022-04-02] MEDS: LIDOCAINE 5% TOPICAL PATCH TP SCH (09:41)
[2022-04-02] MEDS: CARVEDILOL 12.5 MG TABLET (FP) PO SCH ×2 (09:41→21:30)
[2022-04-02] MEDS: FLUTICASONE PROP 0.05% 16 GM NASAL SPRAY NS SCH (09:41)
[2022-04-02] MEDS: MINERAL OIL/PET HY-PHL TOPICAL OINTMENT 454 GM JAR TP SCH ×2 (09:41→21:44)
[2022-04-02 10:26] LABS: HEMATOCRIT 27.6 % (32.4-45.2); HEMOGLOBIN 9.1 GM/dL (10.7-15.3); MCH 27.3 pg (25.7-33.7); MCHC 32.8 g/dl (32.0-36.0); MEAN CELL VOLUME 83.1 fl (80-96); MEAN PLT VOLUME 8.2 fl (7.5-11.1); PLATELET COUNT 298 10^3/uL (134-434); RBC 3.33 M/mm3 (3.60-5.2); RDW 20.4 % (11.6-15.6); WHITE BLOOD COUNT 6.3 K/mm3 (4.0-10.0)
[2022-04-02 10:55] LABS: ALBUMIN 2.7 g/dl (3.4-5.0); BLOOD UREA NITROGEN 5.4 mg/dL (7-18)
[2022-04-02 10:57] LABS: CREATININE 0.6 mg/dL (0.55-1.3)
[2022-04-02 11:00] LABS: BILIRUBIN,TOTAL 0.3 mg/dL (0.2-1); TOT PROT 5.6 g/dl (6.4-8.2)
[2022-04-02] MEDS: KETOROLAC TROMETHAMINE 30 MG/1 ML VIAL IVPUSH PRN ×2 (11:49→21:31)
[2022-04-02 15:03] VITALS: PULSE 76
[2022-04-03] MEDS: oxyCODONE HCL 5 MG TABLET PO PRN ×2 (02:00→09:27)
[2022-04-03] MEDS: LIDOCAINE PATCH REMOVAL MC SCH (02:29)
[2022-04-03] MEDS: KETOROLAC TROMETHAMINE 30 MG/1 ML VIAL IVPUSH PRN ×2 (03:36→11:44)
[2022-04-03] MEDS: ACETAMINOPHEN 325 MG TABLET (FP) PO PRN (06:45)
[2022-04-03] MEDS: DOCUSATE SODIUM 100 MG CAPSULE (FP) PO SCH ×2 (06:48→13:57)
[2022-04-03] MEDS: LIDOCAINE 5% TOPICAL PATCH TP SCH (09:27)
[2022-04-03] MEDS: FLUoxetine HCL 20 MG CAPSULE PO SCH (09:27)
[2022-04-03] MEDS: GABAPENTIN 300 MG CAPSULE PO SCH (09:28)
[2022-04-03] MEDS: PANTOPRAZOLE 40 MG TABLET PO SCH (09:28)
[2022-04-03] MEDS: CARVEDILOL 12.5 MG TABLET (FP) PO SCH (09:29)
[2022-04-03] MEDS: BUDESONIDE/FORMETEROL FUMARATE 160/4.5 mcg INHALER IH SCH (09:32)
[2022-04-03] MEDS: FLUTICASONE PROP 0.05% 16 GM NASAL SPRAY NS SCH (09:33)
[2022-04-03] MEDS: MINERAL OIL/PET HY-PHL TOPICAL OINTMENT 454 GM JAR TP SCH (09:33)
[2022-04-03 15:59] VITALS: BP 145/75; RESP 18; TEMP 98.1
== END 2022-04-03 16:43 | disposition home health service (06) | DRG 479 ==
LOC: JER 15:55 → JERBED 21:07 → J8W 03-26 01:58
PROVIDERS: ADMIT Internal Medicine; ATTEND Family Medicine
PROC: 0QB03ZX Excision of Lumbar Vertebra, Percutaneous Approach, Diagnostic (ICD-10-PCS; principal; 2022-03-30)
DX: M54.16 Radiculopathy, lumbar region (principal); I10 Essential (primary) hypertension; E78.5 Hyperlipidemia, unspecified; J45.909 Unspecified asthma, uncomplicated; F32.A Depression, unspecified; D72.829 Elevated white blood cell count, unspecified; K21.9 Gastro-esophageal reflux disease without esophagitis; I25.2 Old myocardial infarction; R50.9 Fever, unspecified
CPT/HCPCS: 20225; 36415; 70450-TC; 71045-TC-FY; 72125-TC; 72131-TC; 72192-TC; 80048; 80053; 81003; 82550; 82553; 82803; 83605; 83735; 84100; 84484; 85025; 85027; 85610; 85651; 85730; 86140; 86480; 86850; 86900; 86901; 87040; 87070; 87075; 87086; 87102; 87116; 87205; 87206; 87210; 87804; 87807; 87899; 88304-TC; 93005; 93010; 97116-GP; 97162-GP; 99285-25; C9803-CS; U0003; U0005

== ENCOUNTER 2022-05-25 11:00 | Inpatient (IN) | payer BC, OTHER ==
[2022-05-25 13:27] LABS: HEMATOCRIT 40.4 % (32.4-45.2); MCH 25.4 pg (25.7-33.7); MCHC 32.1 g/dl (32.0-36.0); MEAN CELL VOLUME 79.2 fl (80-96); MEAN PLT VOLUME 9.3 fl (7.5-11.1); PLATELET COUNT 378 10^3/uL (134-434); RDW 16.2 % (11.6-15.6); WHITE BLOOD COUNT 20.7 K/mm3 (4.0-10.0)
[2022-05-25 13:52] LABS: ALBUMIN 3.6 g/dl (3.4-5.0); CALCIUM 9.6 mg/dL (8.5-10.1)
[2022-05-25 13:53] LABS: BLOOD UREA NITROGEN 23.8 mg/dL (7-18)
[2022-05-25 13:56] LABS: CREATININE 2.2 mg/dL (0.55-1.3)
[2022-05-25 13:57] LABS: BILIRUBIN,TOTAL 0.6 mg/dL (0.2-1); TOT PROT 7.8 g/dl (6.4-8.2)
[2022-05-25] MEDS ORDERED: SODIUM CHLORIDE 1,000 ML IV STA (15:17)
[2022-05-25 15:25] LABS: URINE APPEARANCE CLEAR; URINE BILIRUBIN NEGATIVE (NEGATIVE); URINE COLOR YELLOW; URINE GLUCOSE (UA) NEGATIVE (NEGATIVE); URINE KETONE TRACE (NEGATIVE); URINE LEUK ESTERASE NEGATIVE (NEGATIVE); URINE NITRITE NEGATIVE (NEGATIVE); URINE PROTEIN TRACE (NEGATIVE); URINE UROBILINOGEN 0.2 mg/dL (0.2-1.0)
[2022-05-25] MEDS ORDERED: CEFTRIAXONE 1,000 MG in DEXTROSE 5%-WATER - 50 ML IVPB ONE (15:32)
[2022-05-25] MEDS ORDERED: AZITHROMYCIN IVPB 500 MG in DEXTROSE 5%-WATER - 250 ML IVPB ONE (15:32)
[2022-05-25] MEDS ORDERED: CEFTRIAXONE 1 GM/50 ML BAG ONE (15:45)
[2022-05-25] MEDS ORDERED: AZITHROMYCIN IVPB 500 MG/250 ML BAG IVPB ONE (17:14)
[2022-05-25] MEDS ORDERED: ARTIFICIAL TEARS (POLYVINYL ALCOHOL) OPTH DROPS OU PRN (22:41)
[2022-05-25] MEDS ORDERED: ALBUTEROL SO4 0.083% IH SOL 2.5 MG/3 ML VIAL.NEB. NEB PRN (22:41)
[2022-05-26] MEDS: BUDESONIDE/FORMETEROL FUMARATE 160/4.5 mcg INHALER IH SCH ×3 (04:09→21:45)
[2022-05-26 04:52] VITALS: BMI 26.7
[2022-05-26] MEDS ORDERED: LIDOCAINE 5% TOPICAL PATCH TP ONE (05:10)
[2022-05-26] MEDS ORDERED: ACETAMINOPHEN 1000 MG/100 ML BAG IVPB ONE (05:11)
[2022-05-26 10:36] LABS: EOS % 7.1 % (0-4.5); HEMATOCRIT 32.4 % (32.4-45.2); HEMOGLOBIN 10.9 GM/dL (10.7-15.3); MCH 26.8 pg (25.7-33.7); MCHC 33.8 g/dl (32.0-36.0); MEAN CELL VOLUME 79.2 fl (80-96); MEAN PLT VOLUME 9.3 fl (7.5-11.1); NEUT % 48.9 % (42.8-82.8); PLATELET COUNT 340 10^3/uL (134-434); RBC 4.09 M/mm3 (3.60-5.2); RDW 16.5 % (11.6-15.6); WHITE BLOOD COUNT 8.4 K/mm3 (4.0-10.0)
[2022-05-26] MEDS ORDERED: SODIUM CHLORIDE 1,000 ML IV SCH (11:00)
[2022-05-26] MEDS ORDERED: CEFTRIAXONE 1 GM in DEXTROSE 5%-WATER - 50 ML IVPB SCH (11:00)
[2022-05-26 11:13] LABS: CALCIUM 9.4 mg/dL (8.5-10.1)
[2022-05-26 11:14] LABS: BLOOD UREA NITROGEN 22.4 mg/dL (7-18)
[2022-05-26 11:17] LABS: CREATININE 1.7 mg/dL (0.55-1.3)
[2022-05-26] MEDS ORDERED: POTASSIUM CHLORIDE TABS 20 MEQ TABLET.ER (FP) PO ONE (17:45)
[2022-05-26] MEDS ORDERED: KCL 10 MEQ IVPB 10 MEQ/100 ML INFUS.BAG IVPB SCH (17:45)
[2022-05-26] MEDS: SODIUM CHLORIDE 0.9%/KCL 20 MEQ/1,000 ML INFUS.BAG IV SCH (18:00)
[2022-05-26] MEDS: LIDOCAINE PATCH REMOVAL MC SCH (21:45)
[2022-05-26] MEDS: ACETAMINOPHEN 325 MG TABLET (FP) PO PRN (21:46)
[2022-05-27] MEDS: SODIUM CHLORIDE 0.9%/KCL 20 MEQ/1,000 ML INFUS.BAG IV SCH (07:29)
[2022-05-27] MEDS: BUDESONIDE/FORMETEROL FUMARATE 160/4.5 mcg INHALER IH SCH ×2 (09:07→21:56)
[2022-05-27 10:20] LABS: HEMATOCRIT 33.3 % (32.4-45.2); HEMOGLOBIN 10.8 GM/dL (10.7-15.3); MCH 25.8 pg (25.7-33.7); MCHC 32.4 g/dl (32.0-36.0); MEAN CELL VOLUME 79.7 fl (80-96); MEAN PLT VOLUME 9.3 fl (7.5-11.1); PLATELET COUNT 362 10^3/uL (134-434); RBC 4.18 M/mm3 (3.60-5.2); RDW 16.2 % (11.6-15.6); WHITE BLOOD COUNT 7.5 K/mm3 (4.0-10.0)
[2022-05-27 10:31] LABS: CALCIUM 9.1 mg/dL (8.5-10.1)
[2022-05-27 10:32] LABS: BLOOD UREA NITROGEN 17.2 mg/dL (7-18); MAGNESIUM 2.4 mg/dL (1.8-2.4)
[2022-05-27 10:35] LABS: CREATININE 1.2 mg/dL (0.55-1.3)
[2022-05-27 10:36] LABS: TOT PROT 6.2 g/dl (6.4-8.2)
[2022-05-27 10:37] LABS: BILIRUBIN,TOTAL 0.4 mg/dL (0.2-1)
[2022-05-27] MEDS ORDERED: POTASSIUM CHLORIDE TABS 20 MEQ TABLET.ER (FP) PO ONE (13:45)
[2022-05-27] MEDS: LIDOCAINE PATCH REMOVAL MC SCH (21:56)
[2022-05-28] MEDS: SODIUM CHLORIDE 0.9%/KCL 20 MEQ/1,000 ML INFUS.BAG IV SCH (02:22)
[2022-05-28] MEDS: BUDESONIDE/FORMETEROL FUMARATE 160/4.5 mcg INHALER IH SCH ×2 (09:24→21:51)
[2022-05-28] MEDS: LIDOCAINE PATCH REMOVAL MC SCH (21:57)
[2022-05-29] MEDS: ACETAMINOPHEN 325 MG TABLET (FP) PO PRN (06:29)
[2022-05-29] MEDS: BUDESONIDE/FORMETEROL FUMARATE 160/4.5 mcg INHALER IH SCH ×3 (11:03→21:48)
[2022-05-29] MEDS: SODIUM CHLORIDE 0.9%/KCL 20 MEQ/1,000 ML INFUS.BAG IV SCH (17:33)
[2022-05-29] MEDS: LIDOCAINE PATCH REMOVAL MC SCH (21:49)
[2022-05-30 07:19] VITALS: BP 131/81; PULSE 78; RESP 20; TEMP 99.6
[2022-05-30] MEDS: BUDESONIDE/FORMETEROL FUMARATE 160/4.5 mcg INHALER IH SCH (10:28)
[2022-05-30 11:37] LABS: ALBUMIN 3.4 g/dl (3.4-5.0); CALCIUM 9.6 mg/dL (8.5-10.1)
[2022-05-30 11:43] LABS: BILIRUBIN,TOTAL 0.7 mg/dL (0.2-1); TOT PROT 7.2 g/dl (6.4-8.2)
[2022-05-30] MEDS ORDERED: POTASSIUM CHLORIDE TABS 20 MEQ TABLET.ER (FP) PO ONE (13:52)
== END 2022-05-30 12:00 | disposition home health service (06) | DRG 57 ==
LOC: JER 11:00 → JERBED 19:43 → J8W 05-26 03:24
PROVIDERS: ADMIT Internal Medicine; ATTEND Family Medicine
DX: G20 Parkinson's disease (principal); N17.9 Acute kidney failure, unspecified; J45.909 Unspecified asthma, uncomplicated; I10 Essential (primary) hypertension; E78.5 Hyperlipidemia, unspecified; K21.9 Gastro-esophageal reflux disease without esophagitis; F32.A Depression, unspecified; M54.16 Radiculopathy, lumbar region; N28.1 Cyst of kidney, acquired; E87.6 Hypokalemia; E86.0 Dehydration
CPT/HCPCS: 0241U-QW; 36415; 70450-TC; 71045-TC-FY; 72125-TC; 72170-TC-FY; 76775-TC; 80048; 80053; 81003; 83735; 85025; 85027; 85651; 86140; 87040; 87086; 87899; 93005; 93010; 97116-GP; 97161-GP; 99285-25; C9803-CS; U0003; U0005

== ENCOUNTER 2022-11-09 17:02 | Observation (INO) | payer BC, OTHER ==
[2022-11-09] MEDS ORDERED: ACETAMINOPHEN 325 MG TABLET (FP) PO ONE (17:19)
[2022-11-09] MEDS ORDERED: IBUPROFEN 600 MG TABLET (FP) PO ONE ×2 (17:20→17:21)
[2022-11-09] MEDS ORDERED: ACETAMINOPHEN 325 MG TABLET (FP) ONE (17:20)
[2022-11-09 17:45] VITALS: BMI 28.7
[2022-11-09 21:08] LABS: BASO % 0.7 % (0-2.0); EOS % 2.8 % (0-4.5); HEMATOCRIT 32.8 % (32.4-45.2); HEMOGLOBIN 10.3 GM/dL (10.7-15.3); LYMPH % 33.1 % (8-40); MCH 24.7 pg (25.7-33.7); MCHC 31.3 g/dl (32.0-36.0); MEAN CELL VOLUME 78.9 fl (80-96); MEAN PLT VOLUME 9.5 fl (7.5-11.1); MONO % 5.8 % (3.8-10.2); NEUT % 57.6 % (42.8-82.8); PLATELET COUNT 305 10^3/uL (134-434); RBC 4.15 M/mm3 (3.60-5.2); RDW 16.1 % (11.6-15.6)
[2022-11-09 21:26] LABS: POTASSIUM 4.4 mmol/L (3.5-5.1)
[2022-11-09 21:29] LABS: BLOOD UREA NITROGEN 15.3 mg/dL (7-18); CALCIUM 9.7 mg/dL (8.5-10.1)
[2022-11-09 21:33] LABS: BILIRUBIN,TOTAL 0.2 mg/dL (0.2-1); TOT PROT 7.7 g/dl (6.4-8.2)
[2022-11-10] MEDS ORDERED: ACETAMINOPHEN 1000 MG/100 ML BAG IVPB PRN (00:03)
[2022-11-10] MEDS ORDERED: ALBUTEROL SO4 0.083% IH SOL 2.5 MG/3 ML VIAL.NEB. NEB PRN (01:43)
[2022-11-10 01:59] VITALS: RESP 18
[2022-11-10] MEDS: CARBIDOPA/LEVODOPA 25/100 TABLET (FP) PO SCH ×2 (05:57→13:02)
[2022-11-10 09:12] LABS: BASO % 0.5 % (0-2.0); HEMATOCRIT 31.9 % (32.4-45.2); HEMOGLOBIN 10.7 GM/dL (10.7-15.3); LYMPH % 31.7 % (8-40); MCHC 33.6 g/dl (32.0-36.0); MEAN CELL VOLUME 77.3 fl (80-96); MEAN PLT VOLUME 9.7 fl (7.5-11.1); MONO % 6.3 % (3.8-10.2); NEUT % 57.5 % (42.8-82.8); PLATELET COUNT 305 10^3/uL (134-434); RBC 4.12 M/mm3 (3.60-5.2); RDW 16.3 % (11.6-15.6); WHITE BLOOD COUNT 8.1 K/mm3 (4.0-10.0)
[2022-11-10 09:26] LABS: ALBUMIN 3.9 g/dl (3.4-5.0); BLOOD UREA NITROGEN 12.2 mg/dL (7-18); MAGNESIUM 2.2 mg/dL (1.8-2.4)
[2022-11-10 09:29] LABS: CREATININE 0.7 mg/dL (0.55-1.3); PHOSPHOROUS 3.5 mg/dL (2.5-4.9)
[2022-11-10 09:31] LABS: BILIRUBIN,TOTAL 0.8 mg/dL (0.2-1)
[2022-11-10 09:34] LABS: TOT PROT 7.7 g/dl (6.4-8.2)
[2022-11-10] MEDS ORDERED: LOSARTAN POTASSIUM 50 MG TABLET PO SCH (10:00)
[2022-11-10] MEDS ORDERED: PANTOPRAZOLE 40 MG TABLET PO SCH (10:00)
[2022-11-10] MEDS ORDERED: GABAPENTIN 300 MG CAPSULE PO SCH (10:00)
[2022-11-10] MEDS ORDERED: ENOXAPARIN NA (PORCINE) 40 MG/0.4 ML DISP.SYRIN SQ SCH (10:00)
[2022-11-10] MEDS ORDERED: BUDESONIDE/FORMETEROL FUMARATE 160/4.5 mcg INHALER IH SCH (10:00)
[2022-11-10] MEDS ORDERED: SOLIFENACIN SUCCINATE 5 MG TAB PO SCH (10:00)
[2022-11-10] MEDS ORDERED: CARVEDILOL 25 MG TABLET (FP) PO SCH (10:00)
[2022-11-10] MEDS ORDERED: FLUoxetine HCL 20 MG CAPSULE PO SCH (10:00)
[2022-11-10] MEDS ORDERED: amLODIPine BESYLATE 10 MG TABLET (FP) PO SCH (10:00)
[2022-11-10] MEDS ORDERED: ARIPiprazole 10 MG TABLET PO SCH (10:00)
[2022-11-10 10:19] LABS: EPI CELLS 12 /uL (0-25.1); HYALINE CASTS 0 /uL (0-3.1); URINE APPEARANCE CLEAR; URINE BACTERIA 252 /uL (0-1359); URINE BILIRUBIN NEGATIVE (NEGATIVE); URINE COLOR YELLOW; URINE GLUCOSE (UA) NEGATIVE (NEGATIVE); URINE KETONE NEGATIVE (NEGATIVE); URINE LEUK ESTERASE 2+ (NEGATIVE); URINE NITRITE NEGATIVE (NEGATIVE); URINE PROTEIN NEGATIVE (NEGATIVE); URINE RBC 3 /uL (0-23.9); URINE UROBILINOGEN 0.2 mg/dL (0.2-1.0); URINE WBC 20 /uL (0-25.8)
[2022-11-10] MEDS ORDERED: ERGOCALCIFEROL (VIT D2) 50,000 UNIT (1.25 MG) CAPSULE PO SCH (12:00)
[2022-11-10] MEDS ORDERED: FLUTICASONE PROP 0.05% 16 GM NASAL SPRAY NS PRN (12:50)
[2022-11-10] MEDS ORDERED: LISINOPRIL 20 MG TABLET PO SCH (13:00)
[2022-11-10] MEDS ORDERED: PRAMIPEXOLE DIHYDROCHLORIDE 0.5 MG TABLET PO SCH (13:00)
[2022-11-10 14:09] VITALS: BP 131/82; PULSE 68; TEMP 98.6
[2022-11-10] MEDS ORDERED: METOCLOPRAMIDE HCL 10 MG TABLET (FP) PO SCH (16:30)
[2022-11-10] MEDS ORDERED: ATORVASTATIN CA 10 MG TABLET (FP) PO SCH (22:00)
[2022-11-10] MEDS ORDERED: DESMOPRESSIN ACETATE 0.2 MG TABLET PO SCH (22:00)
[2022-11-10] MEDS ORDERED: LORATADINE 10 MG TABLET PO SCH (22:00)
[2022-11-10] MEDS ORDERED: BACLOFEN 10 MG TABLET (FP) PO SCH (22:00)
[2022-11-11] MEDS ORDERED: PATIENT'S OWN MEDICATION (NON-FORMULARY) (Fluticasone/Vilanterol 1 PUFF Inhaler) IN SCH (10:00)
== END 2022-11-10 16:39 | disposition home or self-care (01) ==
LOC: JERFT 17:02 → JER 17:02 → JERBED 17:49 → J6S 11-10 01:46
PROVIDERS: ADMIT Internal Medicine; ATTEND Internal Medicine
PROC: 3E033NZ Introduction of Analgesics, Hypnotics, Sedatives into Peripheral Vein, Percutaneous Approach (ICD-10-PCS; principal; 2022-11-09)
PROC: 3E023GC Introduction of Other Therapeutic Substance into Muscle, Percutaneous Approach (ICD-10-PCS; 2022-11-09)
PROC: 3E023GC Introduction of Other Therapeutic Substance into Muscle, Percutaneous Approach (ICD-10-PCS; 2022-11-09)
DX: S93.402A Sprain of unspecified ligament of left ankle, initial encounter (principal); X58.XXXA Exposure to other specified factors, initial encounter; Y93.89 Activity, other specified; Y92.410 Unspecified street and highway as the place of occurrence of the external cause; Z88.8 Allergy status to other drugs, medicaments and biological substances; M54.30 Sciatica, unspecified side; G89.29 Other chronic pain; G20 Parkinson's disease; N32.89 Other specified disorders of bladder
CPT/HCPCS: 0241U-QW; 36415; 71045-TC-FY; 73610-TC-LT-FY; 73630-TC-LT; 80053; 81003; 82728; 83540; 83550; 83735; 84100; 85025; 85045; 93005; 93010; 96372; 96374; 97116-GP; 97161-GP; 99285-25; G0378

== ENCOUNTER 2022-12-02 10:15 | Emergency (ER) | payer BC, OTHER ==
[2022-12-02 10:37] VITALS: BMI 24.0
[2022-12-02] MEDS ORDERED: LORATADINE 10 MG TABLET PO ONE (12:14)
[2022-12-02] MEDS ORDERED: LORATADINE 10 MG TABLET ONE (12:17)
[2022-12-02 13:47] VITALS: BP 135/83; PULSE 81; RESP 20; TEMP 97.9
== END 2022-12-02 15:24 | disposition home or self-care (01) ==
LOC: JER 10:15
DX: R21 Rash and other nonspecific skin eruption (principal); T78.40XA Allergy, unspecified, initial encounter
CPT/HCPCS: 93005; 93010; 99283-25

== ENCOUNTER 2023-07-22 12:30 | Inpatient (IN) | payer OTHER ==
[2023-07-22] MEDS ORDERED: NALOXONE HCL 0.4 MG/ML VIAL ONE (13:10)
[2023-07-22] MEDS: NALOXONE HCL 0.4 MG/ML VIAL IVPUSH ONE (13:15)
[2023-07-22] MEDS: SODIUM CHLORIDE IV ONE (13:15)
[2023-07-22] MEDS ORDERED: EPINEPHrine 1:10,000 (P-F SYR) 1 MG/10 ML DISP.SYRIN ONE (13:16)
[2023-07-22 13:32] LABS: HEMATOCRIT 32.4 % (32.4-45.2); HEMOGLOBIN 10.3 GM/dL (10.7-15.3); MCH 24.9 pg (25.7-33.7); MCHC 31.9 g/dl (32.0-36.0); MEAN CELL VOLUME 78.1 fl (80-96); MEAN PLT VOLUME 10.2 fl (7.5-11.1); PLATELET COUNT 180 10^3/uL (134-434); RBC 4.15 M/mm3 (3.60-5.2); VENOUS BASE EXCESS -5.7 mmol/L (-2-2); VENOUS O2 SATURATION 36.1 % (70-80); VENOUS PCO2 40.1 mmHg (38-52); VENOUS PH 7.317 (7.310-7.410); WHITE BLOOD COUNT 14.1 K/mm3 (4.0-10.0)
[2023-07-22 13:36] LABS: INR 1.4 (0.83-1.09); PROTHROMBIN TIME (PATIENT) 16.2 SEC (9.7-13.0)
[2023-07-22 13:39] LABS: ACTIVATED PTT 28.7 SECONDS (25.2-36.5)
[2023-07-22 13:49] LABS: CALCIUM 8.5 mg/dL (8.5-10.1)
[2023-07-22 13:50] LABS: ALBUMIN 3.2 g/dl (3.4-5.0); BLOOD UREA NITROGEN 52.3 mg/dL (7-18)
[2023-07-22 13:50] LABS: MAGNESIUM 2.1 mg/dL (1.8-2.4)
[2023-07-22 13:53] LABS: CREATININE 3.8 mg/dL (0.55-1.3)
[2023-07-22 13:53] LABS: PHOSPHOROUS 5.1 mg/dL (2.5-4.9)
[2023-07-22 13:54] LABS: BILIRUBIN,TOTAL 0.3 mg/dL (0.2-1); TOT PROT 6.5 g/dl (6.4-8.2)
[2023-07-22 14:03] LABS: LACTIC ACID 5.2 mmol/L (0.4-2.0)
[2023-07-22] MEDS: EPINEPHrine INTRACARD 1:10,000 1 MG/10 ML DISP.SYRIN IVPUSH ONE (14:10)
[2023-07-22 14:25] LABS: ANISOCYTOSIS 1+; MACROCYTOSIS 0
[2023-07-22] MEDS ORDERED: ACETAMINOPHEN INJECTION 100 ML IVPB ONE (15:16)
[2023-07-22] MEDS ORDERED: PIPERACILLIN/TAZOB 4.5 GM 4.5 GM/100 ML BAG IVPB ONE (15:16)
[2023-07-22] MEDS ORDERED: VANCOMYCIN 1 GRAM (PRE-DOCKED) 1,000 MG/250 ML BAG IVPB ONE (15:17)
[2023-07-22] MEDS: ACETAMINOPHEN 1000 MG/100 ML BAG IVPB ONE ×2 (15:21→20:35)
[2023-07-22] MEDS: PIPERACILLIN/TAZOB 4.5 GM 4.5 GM in DEXTROSE 5%-WATER 100 ML IVPB ONE (15:21)
[2023-07-22] MEDS: SODIUM CHLORIDE 0.9% 500 ML INFUS.BAG IV ONE ×2 (15:21→18:42)
[2023-07-22 15:47] LABS: LACTIC ACID 3.6 mmol/L (0.4-2.0)
[2023-07-22] MEDS: VANCOMYCIN HCL 1,500 MG in DEXTROSE 5%-WATER - 500 ML IVPB ONE (15:59)
[2023-07-22 16:04] LABS: PHENCYCLIDINE,URINE NEGATIVE (NEGATIVE); URINE BARBITURATES NEGATIVE (NEGATIVE); URINE BENZODIAZEPINES NEGATIVE (NEGATIVE)
[2023-07-22 16:05] LABS: OPIATES, URI NEGATIVE (NEGATIVE)
[2023-07-22 16:06] LABS: EPI CELLS 27 /uL (0-25.1); HYALINE CASTS 9 /uL (0-3.1); METHADONE, UR NEGATIVE (NEGATIVE); URINE APPEARANCE TURBID; URINE BACTERIA 52 /uL (0-1359); URINE BILIRUBIN NEGATIVE (NEGATIVE); URINE COLOR DK YELLOW; URINE GLUCOSE (UA) NEGATIVE (NEGATIVE); URINE KETONE TRACE (NEGATIVE); URINE LEUK ESTERASE 3+ (NEGATIVE); URINE NITRITE NEGATIVE (NEGATIVE); URINE PROTEIN 2+ (NEGATIVE); URINE RBC 37 /uL (0-23.9); URINE WBC 1393 /uL (0-25.8)
[2023-07-22 16:23] LABS: COCAINE, UR NEGATIVE (NEGATIVE); URINE AMPHETAMINES POSITIVE (NEGATIVE)
[2023-07-22] MEDS: PHENYLEPHRINE NS PREMIX 50,000 MCG/500 ML BAG CVP SCH (16:43)
[2023-07-22] MEDS: PIPERACILLIN/TAZOB 2.25 GM 2.25 GM in DEXTROSE 5%-WATER - 50 ML IVPB SCH (18:42)
[2023-07-22] MEDS ORDERED: ACETAMINOPHEN 1000 MG/100 ML BAG IVPB PRN (20:08)
[2023-07-22] MEDS: NOREPINEPHRINE BITARTRATE/D5W 8 MG/250 ML BAG IVPB SCH (20:33)
[2023-07-22] MEDS: DEXTROSE 5%-0.45% SALINE 1,000 ML IV SCH (20:34)
[2023-07-22 22:19] LABS: RETICULOCYTES 0.88 % (0.5-1.5)
[2023-07-22] MEDS: HEPARIN NA (PORCINE) 5,000 UNITS/ML 1ML VIAL SQ SCH (22:21)
[2023-07-22] MEDS: MUPIROCIN 2% TOPICAL OINTMENT FOR DECOLONIZATION NS SCH (22:21)
[2023-07-22] MEDS: CHLORHEXIDINE GLUCONATE 4% CLEANSER FOR DECOLONIZATION TP SCH (22:22)
[2023-07-22] MEDS: CARBIDOPA/LEVODOPA 25/100 TABLET (FP) PO SCH (22:22)
[2023-07-23] MEDS: LACTATED RINGERS SOLUTION 1,000 ML/1,000 ML INFUS.BAG IV SCH (00:24)
[2023-07-23 07:43] LABS: BASO % 0.1 % (0-2.0); EOS % 9.7 % (0-4.5); HEMATOCRIT 30.6 % (32.4-45.2); LYMPH % 5.1 % (8-40); MCH 25.3 pg (25.7-33.7); MCHC 32.5 g/dl (32.0-36.0); MEAN CELL VOLUME 77.9 fl (80-96); MEAN PLT VOLUME 9.7 fl (7.5-11.1); MONO % 3.6 % (3.8-10.2); NEUT % 81.5 % (42.8-82.8); PLATELET COUNT 142 10^3/uL (134-434); RBC 3.93 M/mm3 (3.60-5.2); RDW 19.5 % (11.6-15.6); WHITE BLOOD COUNT 10.2 K/mm3 (4.0-10.0)
[2023-07-23 07:52] LABS: POTASSIUM 3.9 mmol/L (3.5-5.1)
[2023-07-23 07:57] LABS: BLOOD UREA NITROGEN 51.9 mg/dL (7-18); CALCIUM 7.7 mg/dL (8.5-10.1)
[2023-07-23 07:58] LABS: MAGNESIUM 1.8 mg/dL (1.8-2.4)
[2023-07-23 08:00] LABS: CREATININE 2.2 mg/dL (0.55-1.3); PHOSPHOROUS 3.4 mg/dL (2.5-4.9)
[2023-07-23 08:02] LABS: BILIRUBIN,TOTAL 0.3 mg/dL (0.2-1); TOT PROT 5.3 g/dl (6.4-8.2)
[2023-07-23 08:25] LABS: ALBUMIN 2.3 g/dl (3.4-5.0)
[2023-07-23] MEDS: PANTOPRAZOLE 40 MG TABLET PO SCH (09:16)
[2023-07-23] MEDS: FLUoxetine HCL 20 MG CAPSULE PO SCH (09:20)
[2023-07-23] MEDS ORDERED: POLYETHYLENE GLYCOL (HEALTHYLAX) 3350 17 GM PACKET PO SCH (11:45)
[2023-07-23] MEDS ORDERED: DOCUSATE SODIUM 100 MG CAPSULE (FP) PO SCH (11:45)
[2023-07-23] MEDS: ARIPiprazole 20 MG TABLET PO SCH (18:58)
[2023-07-23] MEDS: POLYETHYLENE GLYCOL (HEALTHYLAX) 3350 17 GM PACKET PO SCH (18:59)
[2023-07-23] MEDS ORDERED: PATIENT'S OWN MEDICATION (NON-FORMULARY) (Metoclopramide Hcl [Metoclopramide Hcl] 5 MG Tab PO SCH (22:00)
[2023-07-23] MEDS: PRAMIPEXOLE DIHYDROCHLORIDE 0.5 MG TABLET PO SCH (22:05)
[2023-07-23] MEDS: BACLOFEN 10 MG TABLET (FP) PO SCH (22:05)
[2023-07-23] MEDS: SENNOSIDES 8.6MG TABLET (FP) PO SCH (22:12)
[2023-07-23] MEDS: METOCLOPRAMIDE HCL 10 MG TABLET (FP) PO SCH (22:12)
[2023-07-23] MEDS: ACETAMINOPHEN 1000 MG/100 ML BAG IVPB PRN (22:17)
[2023-07-24 07:01] LABS: BASO % 0.7 % (0-2.0); EOS % 13.8 % (0-4.5); HEMATOCRIT 29.9 % (32.4-45.2); HEMOGLOBIN 9.5 GM/dL (10.7-15.3); LYMPH % 12.1 % (8-40); MCH 24.9 pg (25.7-33.7); MCHC 31.9 g/dl (32.0-36.0); MEAN CELL VOLUME 78.2 fl (80-96); MEAN PLT VOLUME 10.4 fl (7.5-11.1); MONO % 4.3 % (3.8-10.2); NEUT % 69.1 % (42.8-82.8); PLATELET COUNT 147 10^3/uL (134-434); RBC 3.82 M/mm3 (3.60-5.2); RDW 19.1 % (11.6-15.6); WHITE BLOOD COUNT 8.8 K/mm3 (4.0-10.0)
[2023-07-24 07:15] LABS: POTASSIUM 3.7 mmol/L (3.5-5.1)
[2023-07-24 07:19] LABS: CALCIUM 7.6 mg/dL (8.5-10.1)
[2023-07-24 07:20] LABS: ALBUMIN 2.1 g/dl (3.4-5.0); MAGNESIUM 1.9 mg/dL (1.8-2.4)
[2023-07-24 07:23] LABS: PHOSPHOROUS 2.4 mg/dL (2.5-4.9)
[2023-07-24 07:24] LABS: BILIRUBIN,TOTAL 0.4 mg/dL (0.2-1); TOT PROT 4.7 g/dl (6.4-8.2)
[2023-07-24 07:26] LABS: BLOOD UREA NITROGEN 26.3 mg/dL (7-18)
[2023-07-24] MEDS: VASopressin 40 UNITS/100 ML BAG IV SCH (09:30)
[2023-07-24] MEDS: ARIPiprazole 10 MG TABLET PO SCH (09:33)
[2023-07-24] MEDS ORDERED: PATIENT'S OWN MEDICATION (NON-FORMULARY) (Vibegron [Gemtesa] 75 MG Tablet) PO SCH (10:00)
[2023-07-24] MEDS ORDERED: PATIENT'S OWN MEDICATION (NON-FORMULARY) (Omeprazole [Omeprazole] 20 MG Tablet.Dr) PO SCH (10:00)
[2023-07-24] MEDS: NAPH,MB-DB/K PH,MBDB POWDER PACKET PO ONE (11:30)
[2023-07-24] MEDS: PANTOPRAZOLE 40 MG TABLET PO SCH (11:34)
[2023-07-24] MEDS: FAMOTIDINE 20 MG/50 ML IVPB 20 MG/50 ML MG IVPB ONE (14:57)
[2023-07-24] MEDS: AZTREONAM 1 GM in DEXTROSE 5%-WATER - 50 ML IVPB SCH (17:38)
[2023-07-24] MEDS ORDERED: AZTREONAM 1 GM in DEXTROSE 5%-WATER 100 ML IVPB SCH (22:00)
[2023-07-24] MEDS: AZTREONAM 2 GM in DEXTROSE 5%-WATER 100 ML IVPB SCH (22:21)
[2023-07-24] MEDS: BUDESONIDE/FORMETEROL FUMARATE 80/4.5 mcg INHALER IH SCH (22:21)
[2023-07-25 06:30] LABS: BASO % 1.2 % (0-2.0); EOS % 14.3 % (0-4.5); HEMATOCRIT 28.2 % (32.4-45.2); HEMATOCRIT 28.8 % (32.4-45.2); HEMOGLOBIN 9.4 GM/dL (10.7-15.3); HEMOGLOBIN 9.5 GM/dL (10.7-15.3); LYMPH % 30.2 % (8-40); MCH 25.3 pg (25.7-33.7); MCH 25.8 pg (25.7-33.7); MCHC 32.8 g/dl (32.0-36.0); MCHC 33.6 g/dl (32.0-36.0); MEAN CELL VOLUME 76.7 fl (80-96); MEAN CELL VOLUME 77.1 fl (80-96); MEAN PLT VOLUME 10.1 fl (7.5-11.1); MEAN PLT VOLUME 9.8 fl (7.5-11.1); MONO % 6.5 % (3.8-10.2); NEUT % 47.8 % (42.8-82.8); PLATELET COUNT 132 10^3/uL (134-434); RBC 3.67 M/mm3 (3.60-5.2); RBC 3.74 M/mm3 (3.60-5.2); RDW 19.3 % (11.6-15.6); RDW 19.6 % (11.6-15.6); WHITE BLOOD COUNT 8.8 K/mm3 (4.0-10.0)
[2023-07-25 06:45] LABS: POTASSIUM 3.5 mmol/L (3.5-5.1)
[2023-07-25 06:47] LABS: ALBUMIN 2.1 g/dl (3.4-5.0); BLOOD UREA NITROGEN 12.3 mg/dL (7-18); MAGNESIUM 1.4 mg/dL (1.8-2.4)
[2023-07-25 06:48] LABS: INR 1.15 (0.83-1.09); PROTHROMBIN TIME (PATIENT) 13.3 SEC (9.7-13.0)
[2023-07-25 06:51] LABS: CREATININE 0.7 mg/dL (0.55-1.3); PHOSPHOROUS 2.4 mg/dL (2.5-4.9)
[2023-07-25 06:53] LABS: BILIRUBIN,TOTAL 0.3 mg/dL (0.2-1)
[2023-07-25] MEDS: MAGNESIUM SULFATE IN WATER 2 GM/50 ML IVPB IVPB ONE (08:43)
[2023-07-26 06:58] LABS: ARTERIAL BLD GAS O2 SATURATION 91.6 % (95-98); ARTERIAL BLOOD GAS BASE EXCESS 2.5 mmol/L (-2-2); ARTERIAL BLOOD GAS PO2 59.5 mmHg (80-100); ARTERIAL BLOOD GAS pH 7.437 (7.350-7.450)
[2023-07-26 07:25] LABS: ALLENS TEST POSITIVE
[2023-07-26 07:37] LABS: INR 1.19 (0.83-1.09); PROTHROMBIN TIME (PATIENT) 13.8 SEC (9.7-13.0)
[2023-07-26 07:38] LABS: ACTIVATED PTT 28.6 SECONDS (25.2-36.5)
[2023-07-26 07:39] LABS: BASO % 0.8 % (0-2.0); HEMATOCRIT 27.3 % (32.4-45.2); HEMOGLOBIN 8.9 GM/dL (10.7-15.3); LYMPH % 59.2 % (8-40); MCH 25.2 pg (25.7-33.7); MCHC 32.5 g/dl (32.0-36.0); MEAN CELL VOLUME 77.6 fl (80-96); MEAN PLT VOLUME 10.1 fl (7.5-11.1); MONO % 6.8 % (3.8-10.2); NEUT % 24.2 % (42.8-82.8); PLATELET COUNT 147 10^3/uL (134-434); RBC 3.52 M/mm3 (3.60-5.2); RDW 18.9 % (11.6-15.6); WHITE BLOOD COUNT 12.9 K/mm3 (4.0-10.0)
[2023-07-26 07:55] LABS: POTASSIUM 3.5 mmol/L (3.5-5.1)
[2023-07-26 08:02] LABS: CALCIUM 8.1 mg/dL (8.5-10.1)
[2023-07-26 08:03] LABS: ALBUMIN 2.3 g/dl (3.4-5.0); BLOOD UREA NITROGEN 8.6 mg/dL (7-18); MAGNESIUM 1.9 mg/dL (1.8-2.4)
[2023-07-26 08:05] LABS: PHOSPHOROUS 2.9 mg/dL (2.5-4.9)
[2023-07-26 08:06] LABS: CREATININE 0.6 mg/dL (0.55-1.3)
[2023-07-26 08:08] LABS: BILIRUBIN,TOTAL 0.3 mg/dL (0.2-1)
[2023-07-26 10:13] LABS: ANISOCYTOSIS 0; MACROCYTOSIS 0
[2023-07-26] MEDS ORDERED: HYDROCORTISONE 1% TOPICAL CREAM 30 GM TUBE TP PRN (12:00)
[2023-07-27 06:23] VITALS: RESP 18
[2023-07-27 08:01] LABS: POTASSIUM 3.6 mmol/L (3.5-5.1)
[2023-07-27 08:32] LABS: HEMATOCRIT 26.7 % (32.4-45.2); HEMOGLOBIN 8.8 GM/dL (10.7-15.3); MCH 25.4 pg (25.7-33.7); MCHC 33.1 g/dl (32.0-36.0); MEAN CELL VOLUME 76.7 fl (80-96); MEAN PLT VOLUME 9.5 fl (7.5-11.1); PLATELET COUNT 151 10^3/uL (134-434); RBC 3.48 M/mm3 (3.60-5.2); RDW 18.5 % (11.6-15.6); WHITE BLOOD COUNT 16.1 K/mm3 (4.0-10.0)
[2023-07-27 08:39] LABS: ALBUMIN 2.3 g/dl (3.4-5.0); BLOOD UREA NITROGEN 8.4 mg/dL (7-18); CALCIUM 8.3 mg/dL (8.5-10.1); MAGNESIUM 1.7 mg/dL (1.8-2.4)
[2023-07-27 08:42] LABS: CREATININE 0.5 mg/dL (0.55-1.3); PHOSPHOROUS 3.3 mg/dL (2.5-4.9)
[2023-07-27 08:44] LABS: BILIRUBIN,TOTAL 0.4 mg/dL (0.2-1); TOT PROT 5.5 g/dl (6.4-8.2)
[2023-07-27 10:59] LABS: ANISOCYTOSIS 0; HELMET CELLS 0; HOWELL-JOLLY BODIES 0; MACROCYTOSIS 0; OVALOCYTE 0; ROULEAU 0; SICKELED CELLS 0; TARGET CELLS 0; TEAR DROP CELLS 0; TOXIC GRANULATION 0
[2023-07-27] MEDS: MAGNESIUM SULF 50% (8.12 MEQ/2 ML-1 GM VIAL) IVPB ONE (11:00)
[2023-07-27] MEDS ORDERED: NOREPINEPHRINE BITARTRATE/D5W 8 MG/250 ML BAG IVPB SCH (22:15)
[2023-07-27] MEDS ORDERED: ACETAMINOPHEN 1000 MG/100 ML BAG IVPB PRN (22:15)
[2023-07-27] MEDS: POLYETHYLENE GLYCOL (HEALTHYLAX) 3350 17 GM PACKET PO SCH (23:00)
[2023-07-27] MEDS ORDERED: CHLORHEXIDINE GLUCONATE 4% CLEANSER FOR DECOLONIZATION TP SCH (23:00)
[2023-07-28] MEDS: METOCLOPRAMIDE HCL 10 MG TABLET (FP) PO SCH (00:01)
[2023-07-28] MEDS: HEPARIN NA (PORCINE) 5,000 UNITS/ML 1ML VIAL SQ SCH (00:01)
[2023-07-28] MEDS: PRAMIPEXOLE DIHYDROCHLORIDE 0.5 MG TABLET PO SCH (00:01)
[2023-07-28] MEDS: BACLOFEN 10 MG TABLET (FP) PO SCH (00:01)
[2023-07-28] MEDS: CARBIDOPA/LEVODOPA 25/100 TABLET (FP) PO SCH (00:01)
[2023-07-28] MEDS: BUDESONIDE/FORMETEROL FUMARATE 80/4.5 mcg INHALER IH SCH (00:02)
[2023-07-28] MEDS: SENNOSIDES 8.6MG TABLET (FP) PO SCH (00:02)
[2023-07-28] MEDS: AZTREONAM 2 GM in DEXTROSE 5%-WATER 100 ML IVPB SCH (00:05)
[2023-07-28] MEDS ORDERED: PATIENT'S OWN MEDICATION (NON-FORMULARY) (Vibegron [Gemtesa] 75 MG) PO SCH (10:00)
[2023-07-28] MEDS ORDERED: ARIPiprazole 20 MG TABLET PO SCH (10:00)
[2023-07-28] MEDS: FLUoxetine HCL 20 MG CAPSULE PO SCH (10:22)
[2023-07-28] MEDS: PANTOPRAZOLE 40 MG TABLET PO SCH (10:23)
[2023-07-28] MEDS: ARIPiprazole 10 MG TABLET PO SCH (10:23)
[2023-07-28] MEDS: HYDROCORTISONE 1% TOPICAL CREAM 30 GM TUBE TP PRN (10:41)
[2023-07-28] MEDS: IRON SUCROSE INJECTION 200 MG in SODIUM CHLORIDE 90 ML IVPB ONE (12:06)
[2023-07-28 12:16] LABS: HEMATOCRIT 27.5 % (32.4-45.2); HEMOGLOBIN 9.1 GM/dL (10.7-15.3); MCH 25.5 pg (25.7-33.7); MCHC 33.1 g/dl (32.0-36.0); MEAN PLT VOLUME 9.2 fl (7.5-11.1); PLATELET COUNT 213 10^3/uL (134-434); RBC 3.57 M/mm3 (3.60-5.2); WHITE BLOOD COUNT 13.5 K/mm3 (4.0-10.0)
[2023-07-28 12:42] LABS: POTASSIUM 3.8 mmol/L (3.5-5.1)
[2023-07-28 12:43] LABS: CALCIUM 8.9 mg/dL (8.5-10.1)
[2023-07-28 12:44] LABS: ALBUMIN 2.8 g/dl (3.4-5.0); BLOOD UREA NITROGEN 6.6 mg/dL (7-18)
[2023-07-28 12:47] LABS: CREATININE 0.6 mg/dL (0.55-1.3)
[2023-07-28 12:48] LABS: BILIRUBIN,TOTAL 0.4 mg/dL (0.2-1); TOT PROT 6.4 g/dl (6.4-8.2)
[2023-07-28 13:17] LABS: ANISOCYTOSIS 0; MACROCYTOSIS 0
[2023-07-28 16:40] VITALS: BMI 29.0
[2023-07-28] MEDS ORDERED: AZTREONAM 2 GM VIAL (RESTRICTED TO ID) ONE (23:46)
[2023-07-29 15:39] VITALS: BP 147/90; PULSE 87; TEMP 98.6
== END 2023-07-29 21:15 | disposition home or self-care (01) | DRG 871 ==
LOC: JER 12:30 → JERBED 15:49 → JICU 17:14 → J7W 07-27 15:44
PROVIDERS: ADMIT Internal Medicine; ATTEND Family Medicine
PROC: 05HM33Z Insertion of Infusion Device into Right Internal Jugular Vein, Percutaneous Approach (ICD-10-PCS; principal; 2023-07-22)
DX: A41.89 Other specified sepsis (principal); R65.21 Severe sepsis with septic shock; G92.8 Other toxic encephalopathy; N39.0 Urinary tract infection, site not specified; J18.9 Pneumonia, unspecified organism; N17.9 Acute kidney failure, unspecified; M62.82 Rhabdomyolysis; E87.20 Acidosis, unspecified; G20.A1 Parkinson's disease without dyskinesia, without mention of fluctuations; R33.9 Retention of urine, unspecified; M54.9 Dorsalgia, unspecified; K21.9 Gastro-esophageal reflux disease without esophagitis; J45.909 Unspecified asthma, uncomplicated; T36.0X5A Adverse effect of penicillins, initial encounter; D72.12 Drug rash with eosinophilia and systemic symptoms syndrome; E78.5 Hyperlipidemia, unspecified; R79.89 Other specified abnormal findings of blood chemistry; N28.1 Cyst of kidney, acquired; I95.9 Hypotension, unspecified; M54.16 Radiculopathy, lumbar region; K59.00 Constipation, unspecified; D64.9 Anemia, unspecified
CPT/HCPCS: 0241U-QW; 36415; 36600; 70450-TC; 71045-TC-FY; 71250-TC; 74176-TC; 76775-TC; 80053; 80307; 81003; 82140; 82550; 82553; 82728; 82803; 82962; 83540; 83550; 83605; 83735; 83880; 84100; 84466; 84484; 85025; 85027; 85045; 85610; 85730; 86850; 86900; 86901; 87040; 87086; 93005; 93010; 93308; 93970; 97116-GP; 97162-GP; 99285-25; G0480; J0131; J0475; J1644; J1756

== ENCOUNTER 2024-09-30 22:36 | Emergency (ER) | payer OTHER ==
[2024-09-30 22:47] VITALS: RESP 18; BMI 28.3
[2024-10-01] MEDS ORDERED: ACETAMINOPHEN INJECTION 100 ML ONE (00:25)
[2024-10-01] MEDS: ACETAMINOPHEN 1000 MG/100 ML BAG IVPB ONE (00:42)
[2024-10-01 00:47] LABS: ABSOLUTE IMMATURE GRANULOCYTES 0.05 x10^3/uL (0.0-0.031); BASOPHILS # 0.02 x10^3/uL (0.01-0.08); EOSINOPHIL % 1.9 % (0.7-5.8); EOSINOPHILS # 0.17 x10^3/uL (0.04-0.36); HEMATOCRIT 33.4 % (34.1-44.9); HEMOGLOBIN 10.5 g/dL (11.2-15.7); MCHC 31.4 g/dl (32.2-35.5); MEAN CELL VOLUME 86.1 fl (79.4-94.8); MEAN PLT VOLUME 10.7 fl (9.4-12.3); MONOCYTE # 0.49 x10^3/uL (0.24-0.86); MONOCYTE % 5.5 % (4.7-12.5); PLATELET COUNT 319 x10^3/uL (182-369); RDW 14.7 % (12.4-16.4)
[2024-10-01 01:16] LABS: POTASSIUM 4.2 mmol/L (3.5-5.1)
[2024-10-01 01:19] LABS: ALBUMIN 3.2 g/dl (3.4-5.0); CALCIUM 8.8 mg/dL (8.5-10.1)
[2024-10-01 01:20] LABS: BLOOD UREA NITROGEN 13.3 mg/dL (7-18)
[2024-10-01 01:23] LABS: CREATININE 0.9 mg/dL (0.55-1.3)
[2024-10-01 01:24] LABS: BILIRUBIN,TOTAL 0.3 mg/dL (0.2-1)
[2024-10-01 01:35] LABS: ERYTHROCYTE SEDIMENTATION RATE 70 mm/hr (0-30)
[2024-10-01 01:53] VITALS: PULSE 69
[2024-10-01] MEDS: SIMETHICONE 80 MG TAB.CHEW (FP) PO ONE (02:41)
[2024-10-01] MEDS: CLINDAMYCIN 600MG PREMIX IVPB 600 MG/50 ML BAG IVPB ONE (06:31)
[2024-10-01] MEDS ORDERED: CLINDAMYCIN 600MG PREMIX IVPB 600 MG/50 ML BAG IVPB ONE (06:32)
[2024-10-01 10:01] VITALS: BP 139/79; TEMP 97.8
== END 2024-10-01 08:45 | disposition short-term general hospital (02) ==
LOC: JER 22:36
PROC: 3E03329 Introduction of Other Anti-infective into Peripheral Vein, Percutaneous Approach (ICD-10-PCS; principal; 2024-10-01)
PROC: 3E033NZ Introduction of Analgesics, Hypnotics, Sedatives into Peripheral Vein, Percutaneous Approach (ICD-10-PCS; 2024-10-01)
DX: R51.9 Headache, unspecified (principal); K12.2 Cellulitis and abscess of mouth
CPT/HCPCS: 0241U-QW; 36415; 70450-TC; 70491-TC; 80053; 83605; 85025; 85651; 86140; 87040; 93005; 93010; 96365; 96375; 99285-25; J0131; Q9967